=== PATIENT | male | born 1955 | race Caucasian/White ===

== ENCOUNTER 2019-10-27 19:10 | Emergency (ER) | payer BC ==
[2019-10-27] MEDS: Ketorolac 60 MG/2 ML SDV IM ONE (19:32)
[2019-10-27] MEDS: Cyclobenzaprine 10 MG Tab PO ONE (19:32)
--- NOTE | 2019-10-27 20:06 | EDM.PDOC ---
ED HPI GENERAL MEDICAL PROBLEM - General Chief Complaint: Back Pain or Injury Stated Complaint: BACK PAIN Time Seen by Provider: 10/27/19 19:25 Source of Information: Reports: Patient History Limitations: Reports: No Limitations - History of Present Illness INITIAL COMMENTS - FREE TEXT/NARRATIVE: Patient presented to the ED because of upper back pain. He woke up 2 days ago with pain, 6/10, and took OTC pain meds without relief. There is no recent trauma or injury. mid back Pain Score (Numeric/FACES): 6 - Related Data Allergies Allergy/AdvReac Type Severity Reaction Status Date / Time No Known Allergies Allergy Verified 10/27/19 19:21 Home Meds: Home Meds Citalopram Hydrobromide [Celexa] 20 mg PO DAILY 10/27/19 [History] Cyclobenzaprine [Flexeril] 10 mg PO TID PRN #15 tab 10/27/19 [Rx] Ibuprofen 800 mg PO Q8H PRN #30 tablet 10/27/19 [Rx] Past Medical History - Past Health History Medical/Surgical History: Denies Medical/Surgical History Respiratory History: Reports: Other (See Below) Other Respiratory History: smoker for 30 years 1 pack/day. Psychiatric History: Reports: Anxiety, Other (See Below) Other Psychiatric History: on celexa. Social & Family History - Family History Family Medical History: Noncontributory - Tobacco Use Smoking Status *Q: Current Every Day Smoker Years of Tobacco use: 30 Packs/Tins Daily: 1 - Caffeine Use Caffeine Use: Reports: None ED ROS GENERAL - Review of Systems Review Of Systems: See Below Constitutional: Reports: No Symptoms HEENT: Reports: No Symptoms Respiratory: Reports: No Symptoms Cardiovascular: Reports: No Symptoms Endocrine: Reports: No Symptoms GI/Abdominal: Reports: No Symptoms : Reports: Hematuria Musculoskeletal: Reports: No Symptoms Skin: Reports: No Symptoms Neurological: Reports: No Symptoms ED EXAM, UPPER BACK/NECK PAIN - Physical Exam Exam: See Below Exam Limited By: No Limitations General Appearance: Alert, No Apparent Distress Ears Exam: Normal External Exam, Normal Canal, Hearing Grossly Normal Nose Exam: Normal Inspection, Normal Mucousa Throat/Mouth Exam: Normal Inspection, Normal Lips, Normal Teeth Head Exam: Atraumatic, Normocephalic Neck Exam: Non-Tender, Full Range of Motion Cardiovascular/Respiratory: Regular Rate, Rhythm, No M/R/G, Normal Peripheral Pulses GI/Abdominal: Normal Bowel Sounds, Soft, Non-Tender (Male) Exam: No Hernia, Normal Inspection, Normal Prostate Back Exam: Vertebral Tenderness Extremities: Normal Inspection, Normal Range of Motion Course - Vital Signs Text/Narrative:: Toradol 60 mg IM x1 xray Thoracic- xray lumbar- Last Recorded V/S: Last Vital Signs Temp 36.3 C 10/27/19 19:20 Pulse 86 10/27/19 19:20 Resp 16 10/27/19 19:20 BP 142/79 H 10/27/19 19:20 Pulse Ox 100 10/27/19 19:20 - Orders/Labs/Meds Orders: Active Orders 24 hr Category Date Time Status Lumbar Spine 2 or 3V [CR] Stat Exams 10/27/19 19:24 Ordered Thoracic Spine 3V [CR] Stat Exams 10/27/19 19:24 Ordered Meds: Medications Discontinued Medications Generic Name Dose Route Start Last Admin Trade Name Freq PRN Reason Stop Dose Admin Cyclobenzaprine HCl 10 mg 10/27/19 19:24 10/27/19 19:32 Flexeril PO 10/27/19 19:25 10 mg ONETIME ONE Administration Ketorolac Tromethamine 60 mg 10/27/19 19:24 10/27/19 19:32 Toradol IM 10/27/19 19:25 60 mg ONETIME ONE Administration Departure - Departure Time of Disposition: 20:15 Disposition: Home, Self-Care 01 Condition: Good Clinical Impression: Back pain - Discharge Information Prescriptions: Cyclobenzaprine [Flexeril] 10 mg PO TID PRN #15 tab PRN Reason: Spasms Ibuprofen 800 mg PO Q8H PRN #30 tablet PRN Reason: Pain Referrals: Tyson Tellez MD [Primary Care Provider] - Additional Instructions: please read discharge instructions on back pain apply ice or heat whichever makes the pain feel better take flexeril 10 mg every 8 hours as needed for muscle spasm Ibuprofen 800 mg with tylenol 1000 mg every 8 hours as needed for pain follow up as needed Sepsis Event Note - Evaluation Sepsis Screening Result: No Definite Risk - Focused Exam Vital Signs: Vital Signs Temp Pulse Resp BP Pulse Ox 10/27/19 19:20 36.3 C 86 16 142/79 H 100 Date Exam was Performed: 10/27/19 Time Exam was Performed: 20:01 - My Orders Last 24 Hours: My Active Orders 10/27/19 19:24 Lumbar Spine 2 or 3V [CR] Stat Thoracic Spine 3V [CR] Stat - Assessment/Plan Last 24 Hours: My Active Orders 10/27/19 19:24 Lumbar Spine 2 or 3V [CR] Stat Thoracic Spine 3V [CR] Stat
[2019-10-27 20:45] VITALS: BP 140/78; PULSE 80
--- NOTE | 2019-10-28 10:11 | CR ---
INDICATION: Back pain. LUMBOSACRAL SPINE: Three views of the lumbosacral spine were obtained 10/27/19 - no comparisons. An appearance of diminished bone density raises question of osteomalacia or osteoporosis and should be correlated clinically. Endplate compressions are noted of mild degree throughout the lumbar spine and may be on a chronic basis. Overall, vertebral body disc heights were fairly well maintained otherwise. No significant hypertrophic degenerative changes were identified. There is a tilt of the spine to the right of moderate degree centered at L4-5. Incidentally noted were calcifications in the abdominal aorta and iliac arteries. Evidence of previous surgery is noted in the pelvis compatible with a sigmoid anastomosis. IMPRESSION: There is some tilt to the spine with an appearance of diminished bone density and mild endplate compressions of indeterminate age. Additionally , there is mild anterior vertebral body volume loss at L1 which was present on a previous CT of the chest dated 08/03/2018 and is therefore old. The upper lumbar levels to L3 also show endplate compressions at that previous examination. MTDD
--- NOTE | 2019-10-28 10:17 | CR ---
INDICATION: Back pain. THORACIC SPINE: Four views of the thoracic spine were obtained 10/27/19 in frontal and lateral projections and compared with CT scan of the chest dated . There is a compression fracture of moderate to severe degree at what appears to be T8 vertebral body. This was present to a minimal extent only on the previous study of 08/03/18 and therefore represents a significant increase in compression on the current study. No other new compressions were identified. There is some endplate loss of volume in general compatible with minimal compression fractures, some of which appear to be new or increased compared with the previous CT scan. Overall bone density is diminished in appearance suggesting osteomalacia or osteoporosis - correlate clinically. IMPRESSION: 1. Decreased bone density overall compatible with osteomalacia or osteoporosis - correlate clinically. 2. Compression fracture at T8 is noted - moderately severe and significantly increased compared with previous examination of 08/03/18. 3. Endplate compressions are also noted in general in the thoracic spine, either increased or new compared with the previous examination of 08/03/18. 4. Compression fracture at L1 vertebral body appears to be similar or perhaps very slightly increased in severity compared with the previous CT of 08/03/18. MTDD
== END 2019-10-27 20:25 | disposition home or self-care (01) ==
LOC: FB.ED 19:10
DX: M54.6 Pain in thoracic spine (principal); F41.9 Anxiety disorder, unspecified; F17.210 Nicotine dependence, cigarettes, uncomplicated; Z79.899 Other long term (current) drug therapy
CPT/HCPCS: 72072; 72100; 96372; 99283; A9270; J1885

== ENCOUNTER 2020-01-17 12:20 | Inpatient (IN) | payer BC ==
--- NOTE | 2020-01-17 13:35 | EDM.PDOC ---
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 [employer], however they have been unable to get in touch with him, his sister Winter from [place] in the [facility] came for a visit, they went to the [place] where he had a certified letter from [facility] saying that he would be terminated if he did not communicate with them and have a medical evaluation pt states he drinks only beer, told me that he drinks 6-10 beers/d lives with sig other and their 18 and 19 yo boys, one working on [employer], one works at [employer], sig other works at [employer] smokes 1 ppd, no THC, denies street drugs, states he has had no alc today never been in tx program for alc, does not think he has a drinking problem denies wt loss altho sister says he has lost a sig amount of wt sister reports a head injury from 2m ago, no head CT on record pt drinks beer in his garage, goes from the garage to a chair in the house and little else colonoscopy 04/18 with small polyps x 2 and a few sigmoid diveritculi CT 10-27-19 of l-spine with mild anterior vertebral body volume loss at L1 which was present on CT 08-03-18 and is old. L3 also shows endplate compressions on previous exam. CT 10-27-19 of t-spine with compression fx at T8 with moderately severe and sig inc'd c/w previous on 08-03-18. Endplate compressions also noted in t-spine that are inc'd or new c/w previous. - Related Data Allergies Allergy/AdvReac Type Severity Reaction Status Date / Time No Known Allergies Allergy Verified 01/17/20 12:59 Home Meds: Home Meds NK [No Known Home Meds] 01/17/20 [History] Social & Family History - Tobacco Use Smoking Status *Q: Current Every Day Smoker Years of Tobacco use: 40 Packs/Tins Daily: 1 - Caffeine Use Caffeine Use: Reports: None - Alcohol Use Days Per Week of Alcohol Use: 7 Number of Drinks Per Day: 10 Total Drinks Per Week: 70 Date of Last Drink: 01/16/20 Time of Last Drink: 22:00 - Recreational Drug Use Recreational Drug Use: No ED ROS GENERAL - Review of Systems Review Of Systems: See Below Constitutional: Reports: Weakness, Weight Loss, Other (sister reports he is frail and very weak) HEENT: Reports: No Symptoms Respiratory: Reports: No Symptoms Cardiovascular: Reports: No Symptoms Endocrine: Reports: No Symptoms GI/Abdominal: Reports: No Symptoms : Reports: No Symptoms Musculoskeletal: Reports: No Symptoms Skin: Reports: No Symptoms Neurological: Reports: Confusion Psychiatric: Reports: No Symptoms Hematologic/Lymphatic: Reports: No Symptoms Immunologic: Reports: No Symptoms ED EXAM, GENERAL - Physical Exam Exam: See Below Exam Limited By: No Limitations General Appearance: Alert, Thin, Other (slight tremor, emaciated ext x 4, good eye contact, conversant, pleasant) Eye Exam: Bilateral Eye: PERRL, Other (several drops of white proteinaceous matter at L medial canthus) Ears: Normal External Exam, Hearing Grossly Normal Nose: Normal Inspection, Normal Mucosa, No Blood Throat/Mouth: Normal Inspection, Normal Lips, No Airway Compromise Head: Atraumatic, Normocephalic Neck: Normal Inspection, Supple, Non-Tender, Full Range of Motion. No: Lymphadenopathy (R), Lymphadenopathy (L) Respiratory/Chest: No Respiratory Distress, Lungs Clear, Normal Breath Sounds, No Accessory Muscle Use, Chest Non-Tender Cardiovascular: Regular Rate, Rhythm, No Edema, No Gallop, No Murmur GI/Abdominal: Normal Bowel Sounds, Soft, Non-Tender, No Distention Back Exam: Normal Inspection Extremities: Non-Tender, No Pedal Edema Neurological: Alert, CN II-XII Intact, No Motor/Sensory Deficits Skin Exam: Warm, Dry, Intact Lymphatic: No Adenopathy Course - Vital Signs Last Recorded V/S: Last Vital Signs Temp 37.1 C 01/17/20 19:52 Pulse 104 H 01/17/20 19:52 Resp 16 01/17/20 19:52 BP 128/84 01/17/20 19:52 Pulse Ox 92 L 01/17/20 19:52 - Orders/Labs/Meds Orders: Active Orders 24 hr Category Date Time Status Admission Status [Patient Status] [ADT] Routine ADT 01/17/20 19:42 Active EKG Documentation Completion [RC] ASDIRECTED Care 01/17/20 13:36 Active EKG 12 Lead [EK] Routine Ther 01/17/20 13:35 Ordered Medication Orders Acetaminophen (Tylenol) 650 mg PO Q4H PRN PRN Reason: Pain (Mild 1-3)/fever Lorazepam (Ativan) 1 mg IVPUSH Q2H PRN PRN Reason: Other Nicotine (Habitrol) 21 mg TRDERM DAILY JOSE ANTONIO Ondansetron HCl (Zofran) 4 mg IV Q4H PRN PRN Reason: Nausea/Vomiting Sodium Chloride (Saline Flush) 10 ml FLUSH ASDIRECTED PRN PRN Reason: Keep Vein Open Labs: Laboratory Tests 01/17/20 01/17/20 01/17/20 Range/Units 13:43 13:43 13:50 WBC 3.5 L (4.5-12.0) X10-3/uL RBC 4.18 L (4.30-5.75) x10(6)uL Hgb 13.5 (13.5-17.8) g/dL Hct 41.8 (30.0-51.3) % MCV 99.9 H (80-96) fL MCH 32.3 (27.7-33.6) pg MCHC 32.4 (32.2-35.4) g/dL RDW 15.1 (11.5-15.5) % Plt Count 227 (125-369) X10(3)uL MPV 9.0 (7.4-10.4) fL Neut % (Auto) 65.0 (46-82) % Lymph % (Auto) 18.9 (13-37) % [place] % (Auto) 12.1 H (4-12) % Eos % (Auto) 3 (1.0-5.0) % Baso % (Auto) 1 (0-2) % Neut # (Auto) 2.3 (1.6-8.3) # Lymph # (Auto) 0.7 (0.6-5.0) # [place] # (Auto) 0.4 (0.0-1.3) # Eos # (Auto) 0.1 (0.0-0.8) # Baso # (Auto) 0.0 (0.0-0.2) # PT (9.0-11.1) sec INR (1.00-1.24) Sodium (135-145) mmol/L Potassium (3.5-5.3) mmol/L Chloride (100-110) mmol/L Carbon Dioxide (21-32) mmol/L BUN (7-18) mg/dL Creatinine (0.70-1.30) mg/dL Est Cr Clr Drug Dosing mL/min Estimated GFR (MDRD) (>60) BUN/Creatinine Ratio (9-20) Glucose (80-116) mg/dL Calcium (8.6-10.2) mg/dL Magnesium (1.8-2.5) mg/dL Total Bilirubin (0.1-1.3) mg/dL AST (5-25) IU/L ALT (12-36) U/L Alkaline Phosphatase (56-112) IU/L C-Reactive Protein (0.5-0.9) mg/dL Total Protein (6.0-8.0) g/dL Albumin (3.2-4.6) g/dL Globulin g/dL Albumin/Globulin Ratio TSH, Ultra Sensitive (0.36-3.74) IU/mL Urine Color Yellow (YELLOW) Urine Appearance Slightly cloudy (CLEAR) Urine pH 6.0 (5.0-6.5) Ur Specific Phil Campbell 1.015 (1.010-1.025) Urine Protein Negative (NEGATIVE) mg/dL Urine Glucose (UA) Normal (NORMAL) mg/dL Urine Ketones Negative (NEGATIVE) mg/dL Urine Occult Blood Negative (NEGATIVE) Urine Nitrite Negative (NEGATIVE) Urine Bilirubin Negative (NEGATIVE) Urine Urobilinogen Normal (NEGATIVE) mg/dL Ur Leukocyte Esterase Small H (NEGATIVE) Urine WBC 0-5 (0-5) Ur Squamous Epith Cells Few H (NS,R,O) Urine Bacteria Few H (NS) Urine Opiates Screen Negative (NEGATIVE) Ur Oxycodone Screen Negative (NEGATIVE) Ur Propoxyphene Screen Negative (NEGATIVE) Ur Barbituates Screen Negative (NEGATIVE) Ur Tricyclics Screen Negative (NEGATIVE) Ur Phencyclidine Scrn Negative (NEGATIVE) Ur Amphetamine Screen Negative (NEGATIVE) Urine MDMA Screen Negative (NEGATIVE) U Benzodiazepines Scrn Negative (NEGATIVE) U Cocaine Metab Screen Negative (NEGATIVE) U Marijuana (THC) Screen Negative (NEGATIVE) Ethyl Alcohol (<0.03) % 01/17/20 01/17/20 01/17/20 Range/Units 13:50 13:50 13:50 WBC (4.5-12.0) X10-3/uL RBC (4.30-5.75) x10(6)uL Hgb (13.5-17.8) g/dL Hct (30.0-51.3) % MCV (80-96) fL MCH (27.7-33.6) pg MCHC (32.2-35.4) g/dL RDW (11.5-15.5) % Plt Count (125-369) X10(3)uL MPV (7.4-10.4) fL Neut % (Auto) (46-82) % Lymph % (Auto) (13-37) % [place] % (Auto) (4-12) % Eos % (Auto) (1.0-5.0) % Baso % (Auto) (0-2) % Neut # (Auto) (1.6-8.3) # Lymph # (Auto) (0.6-5.0) # [place] # (Auto) (0.0-1.3) # Eos # (Auto) (0.0-0.8) # Baso # (Auto) (0.0-0.2) # PT 10.4 (9.0-11.1) sec INR 0.96 L (1.00-1.24) Sodium 143 (135-145) mmol/L Potassium 3.7 (3.5-5.3) mmol/L Chloride 106 (100-110) mmol/L Carbon Dioxide 28 (21-32) mmol/L BUN 3 L (7-18) mg/dL Creatinine 0.6 L (0.70-1.30) mg/dL Est Cr Clr Drug Dosing 87.78 mL/min Estimated GFR (MDRD) > 60 (>60) BUN/Creatinine Ratio 5.0 L (9-20) Glucose 90 (80-116) mg/dL Calcium 8.2 L (8.6-10.2) mg/dL Magnesium (1.8-2.5) mg/dL Total Bilirubin 0.5 (0.1-1.3) mg/dL AST 54 H (5-25) IU/L ALT 53 H (12-36) U/L Alkaline Phosphatase 129 H (56-112) IU/L C-Reactive Protein 0.4 L (0.5-0.9) mg/dL Total Protein 6.6 (6.0-8.0) g/dL Albumin 2.9 L (3.2-4.6) g/dL Globulin 3.7 g/dL Albumin/Globulin Ratio 0.8 TSH, Ultra Sensitive 1.98 (0.36-3.74) IU/mL Urine Color (YELLOW) Urine Appearance (CLEAR) Urine pH (5.0-6.5) Ur Specific Phil Campbell (1.010-1.025) Urine Protein (NEGATIVE) mg/dL Urine Glucose (UA) (NORMAL) mg/dL Urine Ketones (NEGATIVE) mg/dL Urine Occult Blood (NEGATIVE) Urine Nitrite (NEGATIVE) Urine Bilirubin (NEGATIVE) Urine Urobilinogen (NEGATIVE) mg/dL Ur Leukocyte Esterase (NEGATIVE) Urine WBC (0-5) Ur Squamous Epith Cells (NS,R,O) Urine Bacteria (NS) Urine Opiates Screen (NEGATIVE) Ur Oxycodone Screen (NEGATIVE) Ur Propoxyphene Screen (NEGATIVE) Ur Barbituates Screen (NEGATIVE) Ur Tricyclics Screen (NEGATIVE) Ur Phencyclidine Scrn (NEGATIVE) Ur Amphetamine Screen (NEGATIVE) Urine MDMA Screen (NEGATIVE) U Benzodiazepines Scrn (NEGATIVE) U Cocaine Metab Screen (NEGATIVE) U Marijuana (THC) Screen (NEGATIVE) Ethyl Alcohol 0.18 H* (<0.03) % // Range/Units 13:50 WBC (4.5-12.0) X10-3/uL RBC (4.30-5.75) x10(6)uL Hgb (13.5-17.8) g/dL Hct (30.0-51.3) % MCV (80-96) fL MCH (27.7-33.6) pg MCHC (32.2-35.4) g/dL RDW (11.5-15.5) % Plt Count (125-369) X10(3)uL MPV (7.4-10.4) fL Neut % (Auto) (46-82) % Lymph % (Auto) (13-37) % [place] % (Auto) (4-12) % Eos % (Auto) (1.0-5.0) % Baso % (Auto) (0-2) % Neut # (Auto) (1.6-8.3) # Lymph # (Auto) (0.6-5.0) # [place] # (Auto) (0.0-1.3) # Eos # (Auto) (0.0-0.8) # Baso # (Auto) (0.0-0.2) # PT (9.0-11.1) sec INR (1.00-1.24) Sodium (135-145) mmol/L Potassium (3.5-5.3) mmol/L Chloride (100-110) mmol/L Carbon Dioxide (21-32) mmol/L BUN (7-18) mg/dL Creatinine (0.70-1.30) mg/dL Est Cr Clr Drug Dosing mL/min Estimated GFR (MDRD) (>60) BUN/Creatinine Ratio (9-20) Glucose (80-116) mg/dL Calcium (8.6-10.2) mg/dL Magnesium 2.1 (1.8-2.5) mg/dL Total Bilirubin (0.1-1.3) mg/dL AST (5-25) IU/L ALT (12-36) U/L Alkaline Phosphatase (56-112) IU/L C-Reactive Protein (0.5-0.9) mg/dL Total Protein (6.0-8.0) g/dL Albumin (3.2-4.6) g/dL Globulin g/dL Albumin/Globulin Ratio TSH, Ultra Sensitive (0.36-3.74) IU/mL Urine Color (YELLOW) Urine Appearance (CLEAR) Urine pH (5.0-6.5) Ur Specific Phil Campbell (1.010-1.025) Urine Protein (NEGATIVE) mg/dL Urine Glucose (UA) (NORMAL) mg/dL Urine Ketones (NEGATIVE) mg/dL Urine Occult Blood (NEGATIVE) Urine Nitrite (NEGATIVE) Urine Bilirubin (NEGATIVE) Urine Urobilinogen (NEGATIVE) mg/dL Ur Leukocyte Esterase (NEGATIVE) Urine WBC (0-5) Ur Squamous Epith Cells (NS,R,O) Urine Bacteria (NS) Urine Opiates Screen (NEGATIVE) Ur Oxycodone Screen (NEGATIVE) Ur Propoxyphene Screen (NEGATIVE) Ur Barbituates Screen (NEGATIVE) Ur Tricyclics Screen (NEGATIVE) Ur Phencyclidine Scrn (NEGATIVE) Ur Amphetamine Screen (NEGATIVE) Urine MDMA Screen (NEGATIVE) U Benzodiazepines Scrn (NEGATIVE) U Cocaine Metab Screen (NEGATIVE) U Marijuana (THC) Screen (NEGATIVE) Ethyl Alcohol (<0.03) % Meds: Medications Generic Name Dose Route Start Last Admin Trade Name Freq PRN Reason Stop Dose Admin Acetaminophen 650 mg 01/17/20 19:52 Tylenol PO Q4H PRN Pain (Mild 1-3)/fever Lorazepam 1 mg 01/17/20 19:55 Ativan IVPUSH Q2H PRN Other Nicotine 21 mg 01/17/20 21:45 Habitrol TRDERM DAILY JOSE ANTONIO Ondansetron HCl 4 mg 01/17/20 19:52 Zofran IV Q4H PRN Nausea/Vomiting Sodium Chloride 10 ml 01/17/20 21:32 Saline Flush FLUSH ASDIRECTED PRN Keep Vein Open Discontinued Medications Generic Name Dose Route Start Last Admin Trade Name Freq PRN Reason Stop Dose Admin Lorazepam 2 mg 01/17/20 18:02 01/17/20 18:09 Ativan PO 01/17/20 18:03 2 mg ONETIME ONE Administration - Re-Assessments/Exams Free Text/Narrative Re-Assessment/Exam: 01/17/20 14:[address] Chance, radiology, head CT with encephalomalacia at R frontal c/w old contusion vs CVA, cerebral atrophy noted as well 01/17/20 16:20 Rosa, adoption social worker here, recommended the [facility] at [place] for inpatient tx. Pt's sister Winter, phone [phone], said that she could drive pt to [place]. Hospitalist and then ED physician contacted at [facility] in [place], who then referred me to their [facility], ext [phone]. The [facility] said that patients need to go through 3 days of alcohol detox, which is not done at [place]. They typically use [facility]. [facility] detox unit contacted at [phone], Breann requested that we fax over the pt's info and that he could be considered for admission. This info is being sent. vss here, is more shaky with his hands, no meds given here at this juncture will tentatively plan to have sister drive pt to [facility] alc detox unit with later transfer to [facility] inpt tx unit pt will be terminated in one week on 01/23 from his job if he does not enter treatment 01/17/20 17:44 [facility] detox reviewed documentation and declined to take pt as he lives in [place] 01/17/20 20:00 Neil De Guzman reviewed documentation and declined as pt is "too complicated" [facility] declined as they have no contract with [facility] for alc detox pts МАРИНА Hodge called [facility], however there is only outpt alc tx, no inpt d/w DON who agreed to admit pt here in absence of other options sister Winter is planning on staying overnight in [facility] 22:05 pt slept soundly after Ativan 2 mg PO x 1, was cooperative and pleasant and without shakes on floor, declined supper, declined snack on floor altho RN was going to encourage to eat something Departure - Departure Time of Disposition: 20:30 Disposition: Admitted As Inpatient 66 Clinical Impression: Alcohol abuse, Alcohol intoxication, Malnutrition, Hypoalbuminemia, Cognitive impairment, Chronic diarrhea, Elevated liver function tests, Weight loss, Encephalomalacia on imaging study, Leukopenia, Macrocytosis, Elevated alkaline phosphatase level - Discharge Information *PRESCRIPTION DRUG MONITORING PROGRAM REVIEWED*: Not Applicable *COPY OF PRESCRIPTION DRUG MONITORING REPORT IN PATIENT MENG: Not Applicable Sepsis Event Note (ED) - Evaluation Sepsis Screening Result: No Definite Risk - Focused Exam Vital Signs: Vital Signs Temp Pulse Resp BP Pulse Ox 01/17/20 18:05 36.8 C 105 H 18 127/82 97 01/17/20 15:45 36.7 C 91 16 130/76 96 01/17/20 12:23 36.8 C 91 16 123/84 95 - My Orders Last 24 Hours: My Active Orders 01/17/20 13:35 EKG 12 Lead [EK] Routine 01/17/20 13:36 EKG Documentation Completion [RC] ASDIRECTED 01/17/20 19:42 Admission Status [Patient Status] [ADT] Routine - Assessment/Plan Last 24 Hours: My Active Orders 01/17/20 13:35 EKG 12 Lead [EK] Routine 01/17/20 13:36 EKG Documentation Completion [RC] ASDIRECTED 01/17/20 19:42 Admission Status [Patient Status] [ADT] Routine
--- NOTE | 2020-01-17 14:56 | CR ---
INDICATION: Weakness, weight loss. CHEST TWO VIEWS: PA and lateral views of the chest were obtained 01/17/[address] scan of the chest dated 08/03/18. New finding of osteoporotic compression fractures is noted at T7 - severe, mostly anterior but also endplates - greater than 50%, and mild - T8 superior endplate and slightly anteriorly. Otherwise, vertebral body heights were maintained. There is some accentuated dorsal kyphosis at the T7-8 level due to the compressions. Findings compatible with severe COPD are again noted. Pulmonary markings appear similar to the previous CT without a definite active infiltrate or effusion identified. The heart is normal in size and shape. The arch of the aorta is slightly prominent with calcification. IMPRESSION: 1. Fractures of T7 and T8 vertebral bodies are new compared with previous CT scan from 08/03/18, but were present on thoracic spine of 10/27/2019.. 2. Severe COPD. 3. ASD aorta. Report was called to Dr. Frederick at 1425 hours. [facility]
--- NOTE | 2020-01-17 15:10 | CT ---
INDICATION: Head injury 2 months ago, increased confusion. CT OF THE HEAD WITHOUT CONTRAST: Spiral 3.75 mm axial sections were obtained through the brain without contrast with sagittal and coronal reconstructions 01/17/20 - no comparisons. Total exam DLP was 1296.53 mGy-cm. The left maxillary antrum is almost completely opacified which may be on the basis of sinusitis and should be correlated clinically, markedly thickened all is noted at that sinus. The paranasal sinuses were otherwise fairly well aerated except for few left- sided ethmoidal air cells which showed some thickening of linings raising question of additional area of sinusitis. The mastoid air cells appeared to be well aerated. No cranial abnormality was seen. The orbits appear to be intact. Calcifications are noted in the internal carotid arteries. The ventricles are prominent compatible with a significant degree of central atrophy. Some very minimal patchy decreased density in the white suggests a mild degree of microvascular disease. In the right frontal lobe, there is evidence of decreased density in the white matter extending into the tompkins matter extensively compatible with an acute right frontal cerebral infarct An area of encephalomalacia from previous infarct is felt to be less likely, but would also be a consideration which could be further evaluated by MRI, as felt to be clinically necessary. No evidence of a bleeding site or hematoma was seen. IMPRESSION: 1. No definite acute process, but difficult to exclude an acute thrombotic CVA in the right frontal area versus old area of brain injury such as encephalomalacia from previous thrombotic CVA or even injury. Possible brain contusion would be a consideration also. 2. Cerebrovascular disease with central atrophy and minimal microvascular disease type changes in the white matter as well as some calcifications in the internal carotid arteries. 3. Sinusitis, left maxillary antrum. Report was called to Dr. Frederick at 1425 hours. [facility]
[2020-01-17] MEDS ORDERED: LORazepam 1 MG Tab PO ONE (18:02)
[2020-01-17] MEDS ORDERED: Ondansetron 4 MG/2 ML SDV IV PRN (19:52)
[2020-01-17] MEDS ORDERED: Sodium Chloride 0.9% 10 ML Syringe FLUSH PRN (21:32)
[2020-01-17] MEDS ORDERED: Nicotine 21 MG/24 Hr Patch TRDERM SCH (21:45)
[2020-01-17] MEDS ORDERED: Dextrose 5%-0.225% NaCl w/KCl 1,000 ML IV SCH (22:15)
[2020-01-17] MEDS ORDERED: D5 1/2 NS w/ 20 mEq/L KCl 1,000 ML IV SCH (23:00)
[2020-01-18] MEDS: LORazepam 2 MG/ML SDV IVPUSH PRN ×6 (07:39→22:50)
--- NOTE | 2020-01-18 08:41 | PCM.HP.2 ---
H&P History of Present Illness - General Date of Service: 01/18/20 Admit Problem/Dx: Admission Diagnosis/Problem Admission Diagnosis/Problem Alcohol dependence Source of Information: Patient, Family History Limitations: Reports: No Limitations - History of Present Illness Initial Comments - Free Text/Narative: Jorge is a 64-year-old male known to me, presented to ED because of alcohol intoxication. He has a history of Eczema, tobacco abuse, and depression that are previously stable. Yesterday his sister brought him in because his work were not able to reach him. Unclear when his last drink was. He did endorse drinking 6-7 beers per day for several years. Several calls were made in the emergency room to try getting him a place for inpatient treatment, but it's been not been possible - Related Data Allergies/Adverse Reactions: Allergies Allergy/AdvReac Type Severity Reaction Status Date / Time No Known Allergies Allergy Verified 01/18/20 07:10 Home Medications: Home Meds NK [No Known Home Meds] 01/17/20 [History] Past Medical History - Past Health History Medical/Surgical History: Denies Medical/Surgical History HEENT History: Reports: Impaired Vision Respiratory History: Reports: Other (See Below) Other Respiratory History: Benign mass located on lung. Gastrointestinal History: Reports: Other (See Below) Other Gastrointestinal History: Ruptured bowel. Musculoskeletal History: Reports: Other (See Below) Other Musculoskeletal History: Broken rib and wrist. Psychiatric History: Reports: Depression Other Psychiatric History: on celexa. - Infectious Disease History Infectious Disease History: Reports: Chicken Pox - Past Surgical History HEENT Surgical History: Reports: None GI Surgical History: Reports: Appendectomy Social & Family History - Family History Family Medical History: Noncontributory - Tobacco Use Smoking Status *Q: Current Every Day Smoker Years of Tobacco use: 40 Packs/Tins Daily: 1 Used Tobacco, but Quit: No - Caffeine Use Caffeine Use: Reports: None - Alcohol Use Days Per Week of Alcohol Use: 7 Number of Drinks Per Day: 10 Total Drinks Per Week: 70 Date of Last Drink: 01/16/20 Time of Last Drink: 22:00 - Recreational Drug Use Recreational Drug Use: No H&P Review of Systems - Review of Systems: Review Of Systems: Comprehensive ROS is negative, except as noted in HPI. Exam - Exam Exam: See Below - Vital Signs Vital Signs: Last Vital Signs Temp 98.2 F 07/15/20 08:00 Pulse 92 01/18/20 08:00 Resp 20 01/18/20 08:00 BP 138/80 01/18/20 08:00 Pulse Ox 95 01/18/20 08:00 Weight: 46.805 kg - Exam Quality Assessment: Other (Cachectic) General: Alert, Oriented, Other (tremulous) HEENT: PERRLA, Conjunctiva Clear Neck: Supple Lungs: Clear to Auscultation Cardiovascular: Regular Rate GI/Abdominal Exam: Normal Bowel Sounds (Male) Exam: Deferred Rectal (Males) Exam: Deferred Back Exam: Normal Inspection Extremities: Normal Inspection Neurological: Cranial Nerves Intact, Strength Equal Bilateral Neuro Extensive - Mental Status: Oriented x3, Memory Intact Neuro Extensive - Motor, Sensory, Reflexes: CN II-XII Intact Psychiatric: Alert, Withdrawal Symptoms - Patient Data Lab Results Last 24 hrs: Laboratory Results - last 24 hr 01/17/20 01/17/20 01/17/20 Range/Units 13:43 13:43 13:50 WBC 3.5 L (4.5-12.0) X10-3/uL RBC 4.18 L (4.30-5.75) x10(6)uL Hgb 13.5 (13.5-17.8) g/dL Hct 41.8 (30.0-51.3) % MCV 99.9 H (80-96) fL MCH 32.3 (27.7-33.6) pg MCHC 32.4 (32.2-35.4) g/dL RDW 15.1 (11.5-15.5) % Plt Count 227 (125-369) X10(3)uL MPV 9.0 (7.4-10.4) fL Neut % (Auto) 65.0 (46-82) % Lymph % (Auto) 18.9 (13-37) % Charles % (Auto) 12.1 H (4-12) % Eos % (Auto) 3 (1.0-5.0) % Baso % (Auto) 1 (0-2) % Neut # (Auto) 2.3 (1.6-8.3) # Lymph # (Auto) 0.7 (0.6-5.0) # Charles # (Auto) 0.4 (0.0-1.3) # Eos # (Auto) 0.1 (0.0-0.8) # Baso # (Auto) 0.0 (0.0-0.2) # PT (9.0-11.1) sec INR (1.00-1.24) Sodium (135-145) mmol/L Potassium (3.5-5.3) mmol/L Chloride (100-110) mmol/L Carbon Dioxide (21-32) mmol/L BUN (7-18) mg/dL Creatinine (0.70-1.30) mg/dL Est Cr Clr Drug Dosing mL/min Estimated GFR (MDRD) (>60) BUN/Creatinine Ratio (9-20) Glucose (80-116) mg/dL Calcium (8.6-10.2) mg/dL Magnesium (1.8-2.5) mg/dL Total Bilirubin (0.1-1.3) mg/dL AST (5-25) IU/L ALT (12-36) U/L Alkaline Phosphatase (56-112) IU/L C-Reactive Protein (0.5-0.9) mg/dL Total Protein (6.0-8.0) g/dL Albumin (3.2-4.6) g/dL Globulin g/dL Albumin/Globulin Ratio TSH, Ultra Sensitive (0.36-3.74) IU/mL Urine Color Yellow (YELLOW) Urine Appearance Slightly cloudy (CLEAR) Urine pH 6.0 (5.0-6.5) Ur Specific Sulphur 1.015 (1.010-1.025) Urine Protein Negative (NEGATIVE) mg/dL Urine Glucose (UA) Normal (NORMAL) mg/dL Urine Ketones Negative (NEGATIVE) mg/dL Urine Occult Blood Negative (NEGATIVE) Urine Nitrite Negative (NEGATIVE) Urine Bilirubin Negative (NEGATIVE) Urine Urobilinogen Normal (NEGATIVE) mg/dL Ur Leukocyte Esterase Small H (NEGATIVE) Urine WBC 0-5 (0-5) Ur Squamous Epith Cells Few H (NS,R,O) Urine Bacteria Few H (NS) Urine Opiates Screen Negative (NEGATIVE) Ur Oxycodone Screen Negative (NEGATIVE) Ur Propoxyphene Screen Negative (NEGATIVE) Ur Barbituates Screen Negative (NEGATIVE) Ur Tricyclics Screen Negative (NEGATIVE) Ur Phencyclidine Scrn Negative (NEGATIVE) Ur Amphetamine Screen Negative (NEGATIVE) Urine MDMA Screen Negative (NEGATIVE) U Benzodiazepines Scrn Negative (NEGATIVE) U Cocaine Metab Screen Negative (NEGATIVE) U Marijuana (THC) Screen Negative (NEGATIVE) Ethyl Alcohol (<0.03) % 01/17/20 01/17/20 01/17/20 Range/Units 13:50 13:50 13:50 WBC (4.5-12.0) X10-3/uL RBC (4.30-5.75) x10(6)uL Hgb (13.5-17.8) g/dL Hct (30.0-51.3) % MCV (80-96) fL MCH (27.7-33.6) pg MCHC (32.2-35.4) g/dL RDW (11.5-15.5) % Plt Count (125-369) X10(3)uL MPV (7.4-10.4) fL Neut % (Auto) (46-82) % Lymph % (Auto) (13-37) % Charles % (Auto) (4-12) % Eos % (Auto) (1.0-5.0) % Baso % (Auto) (0-2) % Neut # (Auto) (1.6-8.3) # Lymph # (Auto) (0.6-5.0) # Charles # (Auto) (0.0-1.3) # Eos # (Auto) (0.0-0.8) # Baso # (Auto) (0.0-0.2) # PT 10.4 (9.0-11.1) sec INR 0.96 L (1.00-1.24) Sodium 143 (135-145) mmol/L Potassium 3.7 (3.5-5.3) mmol/L Chloride 106 (100-110) mmol/L Carbon Dioxide 28 (21-32) mmol/L BUN 3 L (7-18) mg/dL Creatinine 0.6 L (0.70-1.30) mg/dL Est Cr Clr Drug Dosing 87.78 mL/min Estimated GFR (MDRD) > 60 (>60) BUN/Creatinine Ratio 5.0 L (9-20) Glucose 90 (80-116) mg/dL Calcium 8.2 L (8.6-10.2) mg/dL Magnesium (1.8-2.5) mg/dL Total Bilirubin 0.5 (0.1-1.3) mg/dL AST 54 H (5-25) IU/L ALT 53 H (12-36) U/L Alkaline Phosphatase 129 H (56-112) IU/L C-Reactive Protein 0.4 L (0.5-0.9) mg/dL Total Protein 6.6 (6.0-8.0) g/dL Albumin 2.9 L (3.2-4.6) g/dL Globulin 3.7 g/dL Albumin/Globulin Ratio 0.8 TSH, Ultra Sensitive 1.98 (0.36-3.74) IU/mL Urine Color (YELLOW) Urine Appearance (CLEAR) Urine pH (5.0-6.5) Ur Specific Sulphur (1.010-1.025) Urine Protein (NEGATIVE) mg/dL Urine Glucose (UA) (NORMAL) mg/dL Urine Ketones (NEGATIVE) mg/dL Urine Occult Blood (NEGATIVE) Urine Nitrite (NEGATIVE) Urine Bilirubin (NEGATIVE) Urine Urobilinogen (NEGATIVE) mg/dL Ur Leukocyte Esterase (NEGATIVE) Urine WBC (0-5) Ur Squamous Epith Cells (NS,R,O) Urine Bacteria (NS) Urine Opiates Screen (NEGATIVE) Ur Oxycodone Screen (NEGATIVE) Ur Propoxyphene Screen (NEGATIVE) Ur Barbituates Screen (NEGATIVE) Ur Tricyclics Screen (NEGATIVE) Ur Phencyclidine Scrn (NEGATIVE) Ur Amphetamine Screen (NEGATIVE) Urine MDMA Screen (NEGATIVE) U Benzodiazepines Scrn (NEGATIVE) U Cocaine Metab Screen (NEGATIVE) U Marijuana (THC) Screen (NEGATIVE) Ethyl Alcohol 0.18 H* (<0.03) % 01/17/20 Range/Units 13:50 WBC (4.5-12.0) X10-3/uL RBC (4.30-5.75) x10(6)uL Hgb (13.5-17.8) g/dL Hct (30.0-51.3) % MCV (80-96) fL MCH (27.7-33.6) pg MCHC (32.2-35.4) g/dL RDW (11.5-15.5) % Plt Count (125-369) X10(3)uL MPV (7.4-10.4) fL Neut % (Auto) (46-82) % Lymph % (Auto) (13-37) % Charles % (Auto) (4-12) % Eos % (Auto) (1.0-5.0) % Baso % (Auto) (0-2) % Neut # (Auto) (1.6-8.3) # Lymph # (Auto) (0.6-5.0) # Charles # (Auto) (0.0-1.3) # Eos # (Auto) (0.0-0.8) # Baso # (Auto) (0.0-0.2) # PT (9.0-11.1) sec INR (1.00-1.24) Sodium (135-145) mmol/L Potassium (3.5-5.3) mmol/L Chloride (100-110) mmol/L Carbon Dioxide (21-32) mmol/L BUN (7-18) mg/dL Creatinine (0.70-1.30) mg/dL Est Cr Clr Drug Dosing mL/min Estimated GFR (MDRD) (>60) BUN/Creatinine Ratio (9-20) Glucose (80-116) mg/dL Calcium (8.6-10.2) mg/dL Magnesium 2.1 (1.8-2.5) mg/dL Total Bilirubin (0.1-1.3) mg/dL AST (5-25) IU/L ALT (12-36) U/L Alkaline Phosphatase (56-112) IU/L C-Reactive Protein (0.5-0.9) mg/dL Total Protein (6.0-8.0) g/dL Albumin (3.2-4.6) g/dL Globulin g/dL Albumin/Globulin Ratio TSH, Ultra Sensitive (0.36-3.74) IU/mL Urine Color (YELLOW) Urine Appearance (CLEAR) Urine pH (5.0-6.5) Ur Specific Sulphur (1.010-1.025) Urine Protein (NEGATIVE) mg/dL Urine Glucose (UA) (NORMAL) mg/dL Urine Ketones (NEGATIVE) mg/dL Urine Occult Blood (NEGATIVE) Urine Nitrite (NEGATIVE) Urine Bilirubin (NEGATIVE) Urine Urobilinogen (NEGATIVE) mg/dL Ur Leukocyte Esterase (NEGATIVE) Urine WBC (0-5) Ur Squamous Epith Cells (NS,R,O) Urine Bacteria (NS) Urine Opiates Screen (NEGATIVE) Ur Oxycodone Screen (NEGATIVE) Ur Propoxyphene Screen (NEGATIVE) Ur Barbituates Screen (NEGATIVE) Ur Tricyclics Screen (NEGATIVE) Ur Phencyclidine Scrn (NEGATIVE) Ur Amphetamine Screen (NEGATIVE) Urine MDMA Screen (NEGATIVE) U Benzodiazepines Scrn (NEGATIVE) U Cocaine Metab Screen (NEGATIVE) U Marijuana (THC) Screen (NEGATIVE) Ethyl Alcohol (<0.03) % Result Diagrams: 01/17/20 13:50 01/17/20 13:50 Sepsis Event Note - Evaluation Sepsis Screening Result: No Definite Risk - Focused Exam Vital Signs: Vital Signs Temp Temp Pulse Resp BP BP Pulse Ox 01/18/20 08:00 98.2 F 92 20 138/80 95 01/18/20 06:00 97.6 F 74 16 134/81 97 01/17/20 23:52 98.2 F 92 18 118/78 94 L Date Exam was Performed: 01/18/20 Time Exam was Performed: 08:31 - Problem List (1) Alcohol abuse SNOMED Code(s): 68341230 ICD Code: F10.10 - ALCOHOL ABUSE, UNCOMPLICATED Status: Acute Current Visit: Yes (2) MDD (major depressive disorder) SNOMED Code(s): 763813775 ICD Code: F32.9 - MAJOR DEPRESSIVE DISORDER, SINGLE EPISODE, UNSPECIFIED Status: Acute Current Visit: Yes Qualifiers: Major depression recurrence: recurrent Active/Remission status: currently active Major depression episode severity: moderate Qualified Code(s): F33.1 - Major depressive disorder, recurrent, moderate (3) Thoracic spine fracture SNOMED Code(s): 500278563 ICD Code: S22.009A - UNSP FRACTURE OF UNSP THORACIC VERTEBRA, INIT FOR CLOS FX Status: Chronic Current Visit: Yes Qualifiers: Encounter type: subsequent encounter Fracture healing: with routine healing (4) Alcohol intoxication SNOMED Code(s): 67013125 ICD Code: F10.929 - ALCOHOL USE, UNSPECIFIED WITH INTOXICATION, UNSPECIFIED Status: Acute Current Visit: Yes (5) Malnutrition SNOMED Code(s): 27559778 ICD Code: E46 - UNSPECIFIED PROTEIN-CALORIE MALNUTRITION Status: Acute Current Visit: Yes Qualifiers: Malnutrition type: protein-calorie malnutrition Problem List Initiated/Reviewed/Updated: Yes Orders Last 24hrs: Active Orders 24 hr Category Date Time Status Admission Status [Patient Status] [ADT] Routine ADT 01/17/20 19:42 Active Oxygen Therapy [RC] PRN Care 01/17/20 19:52 Active Up ad Samira [RC] ASDIRECTED Care 01/17/20 19:52 Active VTE/DVT Education [RC] Per Unit Routine Care 01/17/20 19:52 Active Vital Signs [RC] Q4H Care 01/17/20 19:52 Active Consult to Case Management/Registration Rep [CONS] Cons 01/17/20 19:52 Active Routine Consult to Personal Assistant [CONS] Routine Cons 01/17/20 19:52 Active Consult to Spiritual Care [CONS] Routine Cons 01/17/20 19:52 Active Regular Diet [DIET] Diet 01/18/20 Breakfast Active Acetaminophen [Tylenol] Med 01/17/20 19:52 Active 650 mg PO Q4H PRN D5 1/2 NS w/ 20 mEq/L KCl 1,000 ml Med 01/17/20 23:00 Active IV ASDIRECTED LORazepam [Ativan] Med 01/17/20 19:55 Active 1 mg IVPUSH Q2H PRN Nicotine [Habitrol] Med 01/18/20 21:00 Active 21 mg TRDERM DAILY@2100 Ondansetron [Zofran] Med 01/17/20 19:52 Active 4 mg IV Q4H PRN Sodium Chloride 0.9% [Saline Flush] Med 01/17/20 21:32 Active 10 ml FLUSH ASDIRECTED PRN Peripheral IV Insertion Adult [OM.PC] Routine Oth 01/17/20 21:32 Ordered Resuscitation Status Routine Resus Stat 01/17/20 19:52 Ordered EKG 12 Lead [EK] Routine Ther 01/17/20 13:35 Ordered Medication Orders Acetaminophen (Tylenol) 650 mg PO Q4H PRN PRN Reason: Pain (Mild 1-3)/fever Potassium Chloride/Dextrose/Sod Cl (D5 1/2 Ns W/ 20 Meq/L Kcl) 1,000 mls @ 50 mls/hr IV ASDIRECTED JOSE ANTONIO Last Admin: 01/17/20 23:15 Dose: 50 mls/hr Documented by: OMAR Lorazepam (Ativan) 1 mg IVPUSH Q2H PRN PRN Reason: Other Last Admin: 01/18/20 07:39 Dose: 1 mg Documented by: PAOLA Nicotine (Habitrol) 21 mg TRDERM DAILY@2100 JOSE ANTONIO Ondansetron HCl (Zofran) 4 mg IV Q4H PRN PRN Reason: Nausea/Vomiting Sodium Chloride (Saline Flush) 10 ml FLUSH ASDIRECTED PRN PRN Reason: Keep Vein Open Assessment/Plan Comment:: I will continue IV fluid supplementation, adequate nutrition and control of his withdrawal symptoms with benzodiazepines. pier worker is on the case to try and find appropriate placement disposition. If he goes into full-blown delirium tremens we'll admit to the ICU
[2020-01-18] MEDS: Citalopram 20 MG Tab PO SCH (11:06)
[2020-01-18] MEDS: D5 1/2 NS w/ 20 mEq/L KCl 1,000 ML IV SCH (19:28)
[2020-01-18] MEDS: Thiamine 100 MG Tab PO SCH (20:11)
[2020-01-18] MEDS: Nicotine 21 MG/24 Hr Patch TRDERM SCH (20:11)
[2020-01-19] MEDS: LORazepam 2 MG/ML SDV IVPUSH PRN ×3 (01:00→10:17)
[2020-01-19] MEDS: Citalopram 20 MG Tab PO SCH (08:28)
--- NOTE | 2020-01-19 08:42 | PCM.PN ---
- General Info Date of Service: 01/19/20 Functional Status: Reports: Pain Controlled - Review of Systems General: Reports: Other (Withdrawal symptoms) HEENT: Reports: No Symptoms Pulmonary: Reports: No Symptoms Cardiovascular: Reports: Palpitations Gastrointestinal: Reports: No Symptoms Genitourinary: Reports: No Symptoms Musculoskeletal: Reports: No Symptoms Skin: Reports: Diaphoresis Neurological: Reports: No Symptoms Psychiatric: Reports: Confusion, Anxiety - Patient Data Vitals - Most Recent: Last Vital Signs Temp 98.8 F 01/19/20 08:25 Pulse 122 H 01/19/20 08:25 Resp 21 H 01/19/20 08:25 BP 104/74 01/19/20 08:25 Pulse Ox 96 01/19/20 08:25 Weight - Most Recent: 47.854 kg I&O - Last 24 Hours: Intake & Output 01/18/20 01/19/20 01/19/20 22:59 06:59 14:59 Intake Total 626 506 Output Total 0 0 Balance 626 506 Lab Results Last 24 Hours: Laboratory Results - last 24 hr 01/18/20 01/18/20 01/18/20 Range/Units 09:00 09:00 09:00 WBC 7.4 (4.5-12.0) X10-3/uL RBC 4.21 L (4.30-5.75) x10(6)uL Hgb 13.9 (13.5-17.8) g/dL Hct 42.3 (30.0-51.3) % MCV 100.6 H (80-96) fL MCH 32.9 (27.7-33.6) pg MCHC 32.7 (32.2-35.4) g/dL RDW 15.0 (11.5-15.5) % Plt Count 225 (125-369) X10(3)uL MPV 8.6 (7.4-10.4) fL Neut % (Auto) 84.6 H (46-82) % Lymph % (Auto) 7.5 L (13-37) % [place] % (Auto) 5.8 (4-12) % Eos % (Auto) 1 (1.0-5.0) % Baso % (Auto) 2 (0-2) % Neut # (Auto) 6.3 (1.6-8.3) # Lymph # (Auto) 0.6 (0.6-5.0) # [place] # (Auto) 0.4 (0.0-1.3) # Eos # (Auto) 0.0 (0.0-0.8) # Baso # (Auto) 0.1 (0.0-0.2) # Sodium 134 L (135-145) mmol/L Potassium 3.8 (3.5-5.3) mmol/L Chloride 97 L D (100-110) mmol/L Carbon Dioxide 28 (21-32) mmol/L BUN 6 L (7-18) mg/dL Creatinine 1.1 (0.70-1.30) mg/dL Est Cr Clr Drug Dosing 44.91 mL/min Estimated GFR (MDRD) > 60 (>60) BUN/Creatinine Ratio 5.5 L (9-20) Glucose 309 H D (80-116) mg/dL Calcium 8.3 L (8.6-10.2) mg/dL Ethyl Alcohol < 0.03 (<0.03) % Med Orders - Current: Current Medications Acetaminophen (Tylenol) 650 mg PO Q4H PRN PRN Reason: Pain (Mild 1-3)/fever Citalopram Hydrobromide (Celexa) 20 mg PO DAILY [facility] Last Admin: 01/19/20 08:28 Dose: 20 mg Documented by: Potassium Chloride/Dextrose/Sod Cl (D5 1/2 Ns W/ 20 Meq/L Kcl) 1,000 mls @ 50 mls/hr IV Q20H [facility] Last Admin: 01/18/20 19:28 Dose: 50 mls/hr Documented by: Lorazepam (Ativan) 1 mg IVPUSH Q2H PRN PRN Reason: Other Last Admin: 01/19/20 04:10 Dose: 1 mg Documented by: Nicotine (Habitrol) 21 mg TRDERM DAILY@2100 [facility] Last Admin: 01/18/20 20:11 Dose: 21 mg Documented by: Ondansetron HCl (Zofran) 4 mg IV Q4H PRN PRN Reason: Nausea/Vomiting Sodium Chloride (Saline Flush) 10 ml FLUSH ASDIRECTED PRN PRN Reason: Keep Vein Open Thiamine HCl (Vitamin B-1) 100 mg PO BEDTIME [facility] Last Admin: 07/15/20 20:11 Dose: 100 mg Documented by: Discontinued Medications Potassium Chloride/Dextrose/Sod Cl (D5 1/4 Ns With 20 Meq Kcl) 1,000 mls @ 75 mls/hr IV ASDIRECTED JOSE ANTONIO Potassium Chloride/Dextrose/Sod Cl (D5 1/2 Ns W/ 20 Meq/L Kcl) 1,000 mls @ 50 mls/hr IV ASDIRECTED JOSE ANTONIO Stop: 01/18/20 19:59 Last Admin: 01/17/20 23:15 Dose: 50 mls/hr Documented by: Lorazepam (Ativan) 2 mg PO ONETIME ONE Stop: 01/17/20 18:03 Last Admin: 01/17/20 18:09 Dose: 2 mg Documented by: Lorazepam (Ativan) 1 mg IVPUSH Q2H PRN PRN Reason: Other Last Admin: 01/18/20 17:51 Dose: 1 mg Documented by: Nicotine (Habitrol) 21 mg TRDERM DAILY [facility] Last Admin: 01/17/20 22:34 Dose: 21 mg Documented by: - Exam General: Alert, Oriented, Lethargic HEENT: Pupils Equal Neck: Supple Lungs: Clear to Auscultation Cardiovascular: Tachycardia Back Exam: Normal Inspection Neurological: No New Focal Deficit Psy/Mental Status: Alert, Withdrawal Symptoms Sepsis Event Note - Evaluation Sepsis Screening Result: No Definite Risk - Focused Exam Vital Signs: Vital Signs Temp Pulse Resp BP Pulse Ox 01/19/20 08:25 98.8 F 122 H 21 H 104/74 96 01/19/20 04:05 88 22 H 147/87 H 97 01/19/20 03:00 98.8 F 92 22 H 140/86 96 01/19/20 00:55 98.2 F 101 H 22 H 138/84 96 01/18/20 21:45 102 H 22 H 144/86 H 97 Date Exam was Performed: 01/19/20 Time Exam was Performed: 08:39 - Problem List & Annotations (1) Alcohol abuse SNOMED Code(s): 97205435 Code(s): F10.10 - ALCOHOL ABUSE, UNCOMPLICATED Status: Acute Current Visit: Yes (2) MDD (major depressive disorder) SNOMED Code(s): 821346501 Code(s): F32.9 - MAJOR DEPRESSIVE DISORDER, SINGLE EPISODE, UNSPECIFIED Status: Acute Current Visit: Yes Qualifiers: Major depression recurrence: recurrent Active/Remission status: currently active Major depression episode severity: moderate Qualified Code(s): F33.1 - Major depressive disorder, recurrent, moderate (3) Thoracic spine fracture SNOMED Code(s): 369185247 Code(s): S22.009A - UNSP FRACTURE OF UNSP THORACIC VERTEBRA, INIT FOR CLOS FX Status: Chronic Current Visit: Yes Qualifiers: Encounter type: subsequent encounter Fracture healing: with routine healing (4) Alcohol intoxication SNOMED Code(s): 39346809 Code(s): F10.929 - ALCOHOL USE, UNSPECIFIED WITH INTOXICATION, UNSPECIFIED Status: Acute Current Visit: Yes Qualifiers: Complication of substance-induced condition: with unspecified complication Qualified Code(s): F10.929 - Alcohol use, unspecified with intoxication, unspecified (5) Malnutrition SNOMED Code(s): 68494659 Code(s): E46 - UNSPECIFIED PROTEIN-CALORIE MALNUTRITION Status: Acute Current Visit: Yes Qualifiers: Malnutrition type: protein-calorie malnutrition (6) Hyperglycemia SNOMED Code(s): 59953820 Code(s): R73.9 - HYPERGLYCEMIA, UNSPECIFIED Status: Acute Current Visit: Yes - Problem List Review Problem List Initiated/Reviewed/Updated: Yes - My Orders Last 24 Hours: My Active Orders 01/18/20 08:00 CIWAA Assessment [RC] 00,08,16 01/18/20 10:30 Citalopram [Celexa] 20 mg PO DAILY 01/18/20 11:19 OT Evaluation and Treatment [CONS] Routine PT Evaluation and Treatment [CONS] Routine 01/18/20 18:35 LORazepam [Ativan] 1 mg IVPUSH Q2H PRN 01/18/20 19:30 Admission Status [Patient Status] [ADT] Routine 01/18/20 21:00 Thiamine [Vitamin B-1] 100 mg PO BEDTIME 01/19/20 08:39 GLYCOSYLATED HEMOGLOBIN,HGBA1C [CHEM] Routine 01/20/20 05:11 BASIC METABOLIC PANEL,BMP [CHEM] AM CBC WITH AUTO DIFF [HEME] AM - Plan Plan:: Continue CIWA protocol.Has appointment with [place]-discussion of placement to take place. Obtain A1c and repeat labs for AM.
[2020-01-19 11:49] LABS: HEMOGLOBIN A1C 5.5 % (<5.7)
[2020-01-19] MEDS: D5 1/2 NS w/ 20 mEq/L KCl 1,000 ML IV SCH (15:26)
[2020-01-19] MEDS: Thiamine 100 MG Tab PO SCH (21:51)
[2020-01-19] MEDS: Nicotine 21 MG/24 Hr Patch TRDERM SCH (21:51)
[2020-01-20] MEDS: Citalopram 20 MG Tab PO SCH (08:02)
--- NOTE | 2020-01-20 10:36 | PCM.PN ---
- General Info Date of Service: 01/20/20 Admission Dx/Problem (Free Text): He is doing better today, CIWAA overnight was 5. Jorge knows he is at [facility], he states he is here to dry out. Denies any pain, no trouble eating this morning, little bit of tremor this morning. Willing to talk with Chemical dependency unit from [facility] this morning. Electrolytes are corrected. - Patient Data Vitals - Most Recent: Last Vital Signs Temp 98.6 F 01/20/20 07:42 Pulse 87 01/20/20 07:42 Resp 16 01/20/20 07:42 BP 147/88 H 01/20/20 07:42 Pulse Ox 97 01/20/20 07:42 Weight - Most Recent: 105 lb I&O - Last 24 Hours: Intake & Output 01/19/20 01/20/20 01/20/20 22:59 06:59 14:59 Intake Total 416 380 Balance 416 380 Lab Results Last 24 Hours: Laboratory Results - last 24 hr 01/18/20 01/20/20 01/20/20 Range/Units 09:00 06:00 06:00 WBC 6.4 (4.5-12.0) X10-3/uL RBC 4.06 L (4.30-5.75) x10(6)uL Hgb 13.4 L (13.5-17.8) g/dL Hct 41.2 (30.0-51.3) % MCV 101.5 H (80-96) fL MCH 32.9 (27.7-33.6) pg MCHC 32.4 (32.2-35.4) g/dL RDW 15.1 (11.5-15.5) % Plt Count 190 (125-369) X10(3)uL MPV 8.9 (7.4-10.4) fL Neut % (Auto) 77.8 (46-82) % Lymph % (Auto) 13.0 (13-37) % Hudson % (Auto) 5.4 (4-12) % Eos % (Auto) 3 (1.0-5.0) % Baso % (Auto) 1 (0-2) % Neut # (Auto) 5.1 (1.6-8.3) # Lymph # (Auto) 0.8 (0.6-5.0) # Hudson # (Auto) 0.3 (0.0-1.3) # Eos # (Auto) 0.2 (0.0-0.8) # Baso # (Auto) 0.0 (0.0-0.2) # Sodium 136 (135-145) mmol/L Potassium 3.7 (3.5-5.3) mmol/L Chloride 101 (100-110) mmol/L Carbon Dioxide 28 (21-32) mmol/L BUN 7 (7-18) mg/dL Creatinine 0.6 L (0.70-1.30) mg/dL Est Cr Clr Drug Dosing 83.79 mL/min Estimated GFR (MDRD) > 60 (>60) BUN/Creatinine Ratio 11.7 (9-20) Glucose 95 D (80-116) mg/dL Hemoglobin A1c 5.5 (<5.7) % Calcium 8.6 (8.6-10.2) mg/dL Med Orders - Current: Current Medications Acetaminophen (Tylenol) 650 mg PO Q4H PRN PRN Reason: Pain (Mild 1-3)/fever Citalopram Hydrobromide (Celexa) 20 mg PO DAILY [facility] Last Admin: 01/20/20 08:02 Dose: 20 mg Documented by: Lorazepam (Ativan) 1 mg IVPUSH Q2H PRN PRN Reason: Other Last Admin: 01/19/20 10:17 Dose: 1 mg Documented by: Nicotine (Habitrol) 21 mg TRDERM DAILY@2100 [facility] Last Admin: 01/19/20 21:51 Dose: 21 mg Documented by: Ondansetron HCl (Zofran) 4 mg IV Q4H PRN PRN Reason: Nausea/Vomiting Sodium Chloride (Saline Flush) 10 ml FLUSH ASDIRECTED PRN PRN Reason: Keep Vein Open Thiamine HCl (Vitamin B-1) 100 mg PO BEDTIME [facility] Last Admin: 01/19/20 21:51 Dose: 100 mg Documented by: Discontinued Medications Potassium Chloride/Dextrose/Sod Cl (D5 1/4 Ns With 20 Meq Kcl) 1,000 mls @ 75 mls/hr IV ASDIRECTED [facility] Potassium Chloride/Dextrose/Sod Cl (D5 1/2 Ns W/ 20 Meq/L Kcl) 1,000 mls @ 50 mls/hr IV ASDIRECTED [facility] Stop: 01/18/20 19:59 Last Admin: 01/17/20 23:15 Dose: 50 mls/hr Documented by: Potassium Chloride/Dextrose/Sod Cl (D5 1/2 Ns W/ 20 Meq/L Kcl) 1,000 mls @ 50 mls/hr IV Q20H [facility] Last Admin: 01/19/20 15:26 Dose: 50 mls/hr Documented by: Lorazepam (Ativan) 2 mg PO ONETIME ONE Stop: 01/17/20 18:03 Last Admin: 01/17/20 18:09 Dose: 2 mg Documented by: Lorazepam (Ativan) 1 mg IVPUSH Q2H PRN PRN Reason: Other Last Admin: 01/18/20 17:51 Dose: 1 mg Documented by: Nicotine (Habitrol) 21 mg TRDERM DAILY [facility] Last Admin: 01/17/20 22:34 Dose: 21 mg Documented by: - Exam General: Alert, Oriented, Cooperative, No Acute Distress Lungs: Clear to Auscultation, Normal Respiratory Effort Cardiovascular: Regular Rate, Regular Rhythm GI/Abdominal Exam: Normal Bowel Sounds, Soft, Non-Tender, No Distention Extremities: No Pedal Edema Peripheral Pulses: 2+: Radial (L), Radial (R), Posterior Tibial (L), Posterior Tibial (R), Dorsalis Pedis (L), Dorsalis Pedis (R) Skin: Warm, Dry, Intact, Ecchymosis (BLE) Neurological: Normal Speech, Strength Equal Bilateral, Other (fine tremor of bilateral hands) Sepsis Event Note - Evaluation Sepsis Screening Result: No Definite Risk - Focused Exam Vital Signs: Vital Signs Temp Pulse Resp BP Pulse Ox 01/20/20 07:42 98.6 F 87 16 147/88 H 97 01/20/20 05:47 98.1 F 16 136/81 96 01/20/20 04:00 76 16 132/80 95 01/20/20 01:56 98.5 F 16 134/82 94 L 01/19/20 23:47 98.6 F 16 128/87 95 Date Exam was Performed: 01/20/20 Time Exam was Performed: 10:31 - Problem List & Annotations (1) Alcohol abuse SNOMED Code(s): 95804914 Code(s): F10.10 - ALCOHOL ABUSE, UNCOMPLICATED Status: Acute Current Visit: Yes (2) Alcohol withdrawal SNOMED Code(s): 564308808 Code(s): F10.239 - ALCOHOL DEPENDENCE WITH WITHDRAWAL, UNSPECIFIED Status: Resolved Current Visit: Yes Qualifiers: Complication of substance-induced condition: with delirium Qualified Code(s): F10.231 - Alcohol dependence with withdrawal delirium (3) Alcohol intoxication SNOMED Code(s): 76334178 Code(s): F10.929 - ALCOHOL USE, UNSPECIFIED WITH INTOXICATION, UNSPECIFIED Status: Resolved Current Visit: Yes Qualifiers: Complication of substance-induced condition: with unspecified complication Qualified Code(s): F10.929 - Alcohol use, unspecified with intoxication, unspecified (4) MDD (major depressive disorder) SNOMED Code(s): 536239559 Code(s): F32.9 - MAJOR DEPRESSIVE DISORDER, SINGLE EPISODE, UNSPECIFIED Status: Chronic Current Visit: Yes Qualifiers: Major depression recurrence: recurrent Active/Remission status: currently active Major depression episode severity: moderate Qualified Code(s): F33.1 - Major depressive disorder, recurrent, moderate (5) Malnutrition SNOMED Code(s): 25998136 Code(s): E46 - UNSPECIFIED PROTEIN-CALORIE MALNUTRITION Status: Chronic Current Visit: Yes Qualifiers: Malnutrition type: protein-calorie malnutrition (6) Thoracic spine fracture SNOMED Code(s): 247766081 Code(s): S22.009A - UNSP FRACTURE OF UNSP THORACIC VERTEBRA, INIT FOR CLOS FX Status: Chronic Current Visit: Yes Onset Date: ~10/30/19 Qualifiers: Encounter type: subsequent encounter Thoracic vertebra fracture level: T8 Fracture healing: with routine healing - Problem List Review Problem List Initiated/Reviewed/Updated: Yes - My Orders Last 24 Hours: My Active Orders 01/20/20 08:56 Patient Status [ADT] Routine 01/20/20 10:28 Convert IV to Saline Lock [OM.PC] Routine - Plan Plan:: 1. Continue CIWA protocol. 2. Change him from ICU to Med/Surg inpatient status. D/C telemetry. 3. Has Zoom appointment with [facility]-discussion of placement to take place. 4. A1c was 5.5%, well controlled. 5. Labs corrected today. 6. If he is accepted into [facility] program he could go today. But he needs chemical dependence placement for discharge as it is requirement by his job to stay employed.
[2020-01-20] MEDS: Thiamine 100 MG Tab PO SCH (20:50)
[2020-01-20] MEDS: Nicotine 21 MG/24 Hr Patch TRDERM SCH (20:51)
[2020-01-21] MEDS: Citalopram 20 MG Tab PO SCH (08:08)
--- NOTE | 2020-01-21 10:45 | PCM.PN ---
- General Info Date of Service: 01/21/20 Admission Dx/Problem (Free Text): Jorge's appetite is improving, ate all his breakfast, did not require assistance this morning when he got up. PT/OT did recommend keeping for a few more days of therapy due to weakness and deconditioning. He states prior to coming in to hospital he hadn't eaten in 5 days, no appetite. He had meeting with [facility] chemical dependency unit over the phone yesterday, they would take him into treatment, they are working on prior authorization from his insurance and could maybe take him first part of next week. Had normal BM, no complaints of pain. - Patient Data Vitals - Most Recent: Last Vital Signs Temp 97.5 F 01/21/20 08:50 Pulse 83 01/21/20 08:50 Resp 16 01/21/20 08:50 BP 126/74 01/21/20 08:50 Pulse Ox 96 01/21/20 08:50 Weight - Most Recent: 106 lb 8 oz I&O - Last 24 Hours: Intake & Output 01/20/20 01/21/20 01/21/20 22:59 06:59 14:59 Intake Total 400 50 Output Total 0 Balance 400 50 Med Orders - Current: Current Medications Acetaminophen (Tylenol) 650 mg PO Q4H PRN PRN Reason: Pain (Mild 1-3)/fever Citalopram Hydrobromide (Celexa) 20 mg PO DAILY [facility] Last Admin: 01/21/20 08:08 Dose: 20 mg Documented by: Lorazepam (Ativan) 1 mg IVPUSH Q2H PRN PRN Reason: Other Last Admin: 01/19/20 10:17 Dose: 1 mg Documented by: Nicotine (Habitrol) 21 mg TRDERM DAILY@2100 [facility] Last Admin: 01/20/20 20:51 Dose: 21 mg Documented by: Ondansetron HCl (Zofran) 4 mg IV Q4H PRN PRN Reason: Nausea/Vomiting Sodium Chloride (Saline Flush) 10 ml FLUSH ASDIRECTED PRN PRN Reason: Keep Vein Open Last Admin: 01/21/20 08:09 Dose: 10 ml Documented by: Thiamine HCl (Vitamin B-1) 100 mg PO BEDTIME [facility] Last Admin: 01/20/20 20:50 Dose: 100 mg Documented by: Discontinued Medications Potassium Chloride/Dextrose/Sod Cl (D5 1/4 Ns With 20 Meq Kcl) 1,000 mls @ 75 mls/hr IV ASDIRECTED [facility] Potassium Chloride/Dextrose/Sod Cl (D5 1/2 Ns W/ 20 Meq/L Kcl) 1,000 mls @ 50 mls/hr IV ASDIRECTED [facility] Stop: 01/18/20 19:59 Last Admin: 01/17/20 23:15 Dose: 50 mls/hr Documented by: Potassium Chloride/Dextrose/Sod Cl (D5 1/2 Ns W/ 20 Meq/L Kcl) 1,000 mls @ 50 mls/hr IV Q20H [facility] Last Admin: 01/19/20 15:26 Dose: 50 mls/hr Documented by: Lorazepam (Ativan) 2 mg PO ONETIME ONE Stop: 01/17/20 18:03 Last Admin: 01/17/20 18:09 Dose: 2 mg Documented by: Lorazepam (Ativan) 1 mg IVPUSH Q2H PRN PRN Reason: Other Last Admin: 01/18/20 17:51 Dose: 1 mg Documented by: Nicotine (Habitrol) 21 mg TRDERM DAILY [facility] Last Admin: 01/17/20 22:34 Dose: 21 mg Documented by: - Exam General: Alert, Oriented, Cooperative, No Acute Distress Lungs: Clear to Auscultation, Normal Respiratory Effort Cardiovascular: Regular Rate, Regular Rhythm GI/Abdominal Exam: Normal Bowel Sounds, Soft, Non-Tender, No Distention Extremities: No Pedal Edema Sepsis Event Note - Evaluation Sepsis Screening Result: No Definite Risk - Focused Exam Vital Signs: Vital Signs Temp Temp Pulse Resp BP BP Pulse Ox 01/21/20 08:50 97.5 F 83 16 126/74 96 01/21/20 03:34 97.5 F 88 18 138/74 96 01/20/20 23:15 97.7 F 86 16 121/84 95 Date Exam was Performed: 01/21/20 Time Exam was Performed: 10:39 - Problem List & Annotations (1) Alcohol abuse SNOMED Code(s): 56977556 Code(s): F10.10 - ALCOHOL ABUSE, UNCOMPLICATED Status: Acute Current Visit: Yes (2) Alcohol withdrawal SNOMED Code(s): 402027691 Code(s): F10.239 - ALCOHOL DEPENDENCE WITH WITHDRAWAL, UNSPECIFIED Status: Resolved Current Visit: Yes Qualifiers: Complication of substance-induced condition: with delirium Qualified Code(s): F10.231 - Alcohol dependence with withdrawal delirium (3) Alcohol intoxication SNOMED Code(s): 25846177 Code(s): F10.929 - ALCOHOL USE, UNSPECIFIED WITH INTOXICATION, UNSPECIFIED Status: Resolved Current Visit: Yes Qualifiers: Complication of substance-induced condition: with unspecified complication Qualified Code(s): F10.929 - Alcohol use, unspecified with intoxication, unspecified (4) MDD (major depressive disorder) SNOMED Code(s): 654600896 Code(s): F32.9 - MAJOR DEPRESSIVE DISORDER, SINGLE EPISODE, UNSPECIFIED Status: Chronic Current Visit: Yes Qualifiers: Major depression recurrence: recurrent Active/Remission status: currently active Major depression episode severity: moderate Qualified Code(s): F33.1 - Major depressive disorder, recurrent, moderate (5) Malnutrition SNOMED Code(s): 68055833 Code(s): E46 - UNSPECIFIED PROTEIN-CALORIE MALNUTRITION Status: Chronic Current Visit: Yes Qualifiers: Malnutrition type: protein-calorie malnutrition (6) Thoracic spine fracture SNOMED Code(s): 540089426 Code(s): S22.009A - UNSP FRACTURE OF UNSP THORACIC VERTEBRA, INIT FOR CLOS FX Status: Chronic Current Visit: Yes Onset Date: ~10/30/19 Qualifiers: Encounter type: subsequent encounter Thoracic vertebra fracture level: T8 Fracture healing: with routine healing - Problem List Review Problem List Initiated/Reviewed/Updated: Yes - My Orders Last 24 Hours: My Active Orders 01/20/20 10:28 Convert IV to Saline Lock [OM.PC] Routine - Plan Plan:: 1. Continue CIWA protocol, score 4, has not required Ativan for >48 hours. Tentatively accepted in [place] pending approval by insurance. 2. Continue PT/OT for strengthening. 3. Spoke with his sister Winter on his progress, she is staying in contact with his work, they communicated they would support him getting back on his feet. Dougie garduno update her on Thursday when we know more from [place] on the approval status from insurance.
[2020-01-21] MEDS: Thiamine 100 MG Tab PO SCH (20:48)
[2020-01-21] MEDS: Nicotine 21 MG/24 Hr Patch TRDERM SCH (20:48)
[2020-01-22] MEDS: Citalopram 20 MG Tab PO SCH (07:59)
--- NOTE | 2020-01-22 11:15 | PCM.PN ---
- General Info Date of Service: 01/22/20 Admission Dx/Problem (Free Text): Jorge states he is feeling stronger, has been eating all his meals, 100%, no pain or complaints today. Doesn't feel real shaky. Ambulating on his own without walker in the room. Talked with his sister yesterday, knows she will be taking him to [place]. Discussed we will know more tomorrow once we talk with them on insurance approval. - Patient Data Vitals - Most Recent: Last Vital Signs Temp 98.3 F 01/22/20 07:40 Pulse 65 01/22/20 07:40 Resp 16 01/22/20 07:40 BP 140/74 01/22/20 07:40 Pulse Ox 96 01/22/20 07:40 Weight - Most Recent: 107 lb 12.8 oz I&O - Last 24 Hours: Intake & Output 01/21/20 01/22/20 01/22/20 22:59 06:59 14:59 Intake Total 500 Output Total 0 Balance 500 Med Orders - Current: Current Medications Acetaminophen (Tylenol) 650 mg PO Q4H PRN PRN Reason: Pain (Mild 1-3)/fever Citalopram Hydrobromide (Celexa) 20 mg PO DAILY [facility] Last Admin: 01/22/20 07:59 Dose: 20 mg Documented by: Lorazepam (Ativan) 1 mg IVPUSH Q2H PRN PRN Reason: Other Last Admin: 01/19/20 10:17 Dose: 1 mg Documented by: Nicotine (Habitrol) 21 mg TRDERM DAILY@2100 [facility] Last Admin: 01/21/20 20:48 Dose: 21 mg Documented by: Ondansetron HCl (Zofran) 4 mg IV Q4H PRN PRN Reason: Nausea/Vomiting Sodium Chloride (Saline Flush) 10 ml FLUSH ASDIRECTED PRN PRN Reason: Keep Vein Open Last Admin: 01/21/20 08:09 Dose: 10 ml Documented by: Thiamine HCl (Vitamin B-1) 100 mg PO BEDTIME [facility] Last Admin: 01/21/20 20:48 Dose: 100 mg Documented by: Discontinued Medications Potassium Chloride/Dextrose/Sod Cl (D5 1/4 Ns With 20 Meq Kcl) 1,000 mls @ 75 mls/hr IV ASDIRECTED [facility] Potassium Chloride/Dextrose/Sod Cl (D5 1/2 Ns W/ 20 Meq/L Kcl) 1,000 mls @ 50 mls/hr IV ASDIRECTED [facility] Stop: 01/18/20 19:59 Last Admin: 01/17/20 23:15 Dose: 50 mls/hr Documented by: Potassium Chloride/Dextrose/Sod Cl (D5 1/2 Ns W/ 20 Meq/L Kcl) 1,000 mls @ 50 mls/hr IV Q20H [facility] Last Admin: 01/19/20 15:26 Dose: 50 mls/hr Documented by: Lorazepam (Ativan) 2 mg PO ONETIME ONE Stop: 01/17/20 18:03 Last Admin: 01/17/20 18:09 Dose: 2 mg Documented by: Lorazepam (Ativan) 1 mg IVPUSH Q2H PRN PRN Reason: Other Last Admin: 01/18/20 17:51 Dose: 1 mg Documented by: Nicotine (Habitrol) 21 mg TRDERM DAILY [facility] Last Admin: 01/17/20 22:34 Dose: 21 mg Documented by: - Exam General: Alert, Oriented, Cooperative, No Acute Distress Lungs: Clear to Auscultation, Normal Respiratory Effort Cardiovascular: Regular Rate, Regular Rhythm GI/Abdominal Exam: Normal Bowel Sounds, Soft, Non-Tender, No Distention Extremities: No Pedal Edema Neurological: No New Focal Deficit, Other (tremor L>R, stable.) Sepsis Event Note - Evaluation Sepsis Screening Result: No Definite Risk - Focused Exam Vital Signs: Vital Signs Temp Pulse Resp BP BP Pulse Ox 01/22/20 07:40 98.3 F 65 16 140/74 96 01/22/20 04:05 97.2 F 84 16 135/76 96 01/21/20 23:50 97.9 F 76 16 142/80 H 97 Date Exam was Performed: 01/22/20 Time Exam was Performed: 11:11 - Problem List & Annotations (1) Alcohol abuse SNOMED Code(s): 99459536 Code(s): F10.10 - ALCOHOL ABUSE, UNCOMPLICATED Status: Acute Current Visit: Yes (2) Alcohol withdrawal SNOMED Code(s): 606929649 Code(s): F10.239 - ALCOHOL DEPENDENCE WITH WITHDRAWAL, UNSPECIFIED Status: Resolved Current Visit: Yes Qualifiers: Complication of substance-induced condition: with delirium Qualified Code(s): F10.231 - Alcohol dependence with withdrawal delirium (3) Alcohol intoxication SNOMED Code(s): 60783712 Code(s): F10.929 - ALCOHOL USE, UNSPECIFIED WITH INTOXICATION, UNSPECIFIED Status: Resolved Current Visit: Yes Qualifiers: Complication of substance-induced condition: with unspecified complication Qualified Code(s): F10.929 - Alcohol use, unspecified with intoxication, unspecified (4) MDD (major depressive disorder) SNOMED Code(s): 911507130 Code(s): F32.9 - MAJOR DEPRESSIVE DISORDER, SINGLE EPISODE, UNSPECIFIED Status: Chronic Current Visit: Yes Qualifiers: Major depression recurrence: recurrent Active/Remission status: currently active Major depression episode severity: moderate Qualified Code(s): F33.1 - Major depressive disorder, recurrent, moderate (5) Malnutrition SNOMED Code(s): 73121789 Code(s): E46 - UNSPECIFIED PROTEIN-CALORIE MALNUTRITION Status: Chronic Current Visit: Yes Qualifiers: Malnutrition type: protein-calorie malnutrition (6) Thoracic spine fracture SNOMED Code(s): 552621805 Code(s): S22.009A - UNSP FRACTURE OF UNSP THORACIC VERTEBRA, INIT FOR CLOS FX Status: Chronic Current Visit: Yes Onset Date: ~10/30/19 Qualifiers: Encounter type: subsequent encounter Thoracic vertebra fracture level: T8 Fracture healing: with routine healing - Problem List Review Problem List Initiated/Reviewed/Updated: Yes - Plan Plan:: 1. Continue CIWA protocol, score 4, stable, has not required Ativan for >72 hours. Tentatively accepted in [place] pending approval by insurance. 2. Continue PT/OT for strengthening. 3. Discharge planning tomorrow on when we can discharge to [facility].
[2020-01-22] MEDS: Acetaminophen 325 MG Tab PO PRN ×2 (13:48→21:49)
[2020-01-22] MEDS: Thiamine 100 MG Tab PO SCH (20:47)
[2020-01-22] MEDS: LORazepam 0.5 MG Tab PO PRN (20:47)
[2020-01-22] MEDS: Nicotine 21 MG/24 Hr Patch TRDERM SCH (20:47)
[2020-01-23] MEDS: LORazepam 0.5 MG Tab PO PRN ×4 (02:10→21:42)
[2020-01-23] MEDS ORDERED: LORazepam 2 MG/ML SDV IM ONE (03:58)
--- NOTE | 2020-01-23 04:05 | PCM.SN.2 ---
- Free Text/Narrative Note: pt not slept all night, squatting on floor when I entered room, says he "wants to leave" in order "to buy something" delirious with mild agitation, HR 110, lungs clear, CV RRR given Ativan 0.5 mg PO one hour earlier without benefit had slept previous 2 nights scheduled to go to [facility] to alc tx pgm today ASSESS delirium PLAN Ativan 2 mg IM
[2020-01-23] MEDS ORDERED: LORazepam 2 MG/ML SDV IM PRN (08:31)
[2020-01-23] MEDS: Citalopram 20 MG Tab PO SCH (09:33)
--- NOTE | 2020-01-23 17:00 | PCM.PN ---
- General Info Date of Service: 01/23/20 Admission Dx/Problem (Free Text): Jorge had rough day yesterday afternoon, & overnight, more confused, had incident where came out to nurses station and incontinent of urine and stool on the floor, was redirectable during the day, his IV had been pulled because had not been used in 96 hours but more agitated and CIWAA score went up to 20s again, required Ativan 2 mg IM overnight, woke up to take am pills then went back to sleep, check on him later around noon, he was alert and oriented, knew he was in [place], at the hospital. CIWAA back down to 3. He is approved for [facility], they need him discharged tomorrow afternoon and stay overnight in hotel there as they want to do admission at 830 am, they will be doing COVID there so did not want us doing here as they still would do it there. His sister will pick him up tomorrow as long as he remains stable, will be bringing his clothes. - Patient Data Vitals - Most Recent: Last Vital Signs Temp 98.5 F 01/23/20 16:00 Pulse 80 01/23/20 16:00 Resp 19 01/23/20 16:00 BP 124/80 01/23/20 16:00 Pulse Ox 94 L 01/23/20 16:00 Weight - Most Recent: 107 lb 14.4 oz I&O - Last 24 Hours: Intake & Output 01/23/20 01/23/20 01/23/20 06:59 14:59 22:59 Intake Total 100 Output Total 0 Balance 100 Lab Results Last 24 Hours: Laboratory Results - last 24 hr 01/23/20 01/23/20 Range/Units 08:50 08:50 WBC 6.4 (4.5-12.0) X10-3/uL RBC 3.91 L (4.30-5.75) x10(6)uL Hgb 13.0 L (13.5-17.8) g/dL Hct 39.8 (30.0-51.3) % MCV 101.8 H (80-96) fL MCH 33.1 (27.7-33.6) pg MCHC 32.5 (32.2-35.4) g/dL RDW 14.7 (11.5-15.5) % Plt Count 201 (125-369) X10(3)uL MPV 8.9 (7.4-10.4) fL Neut % (Auto) 75.8 (46-82) % Lymph % (Auto) 10.6 L (13-37) % [place] % (Auto) 10.8 (4-12) % Eos % (Auto) 2 (1.0-5.0) % Baso % (Auto) 1 (0-2) % Neut # (Auto) 4.8 (1.6-8.3) # Lymph # (Auto) 0.7 (0.6-5.0) # [place] # (Auto) 0.7 (0.0-1.3) # Eos # (Auto) 0.1 (0.0-0.8) # Baso # (Auto) 0.1 (0.0-0.2) # Sodium 139 (135-145) mmol/L Potassium 3.7 (3.5-5.3) mmol/L Chloride 101 (100-110) mmol/L Carbon Dioxide 32 (21-32) mmol/L BUN 12 (7-18) mg/dL Creatinine 0.5 L (0.70-1.30) mg/dL Est Cr Clr Drug Dosing 103.32 mL/min Estimated GFR (MDRD) > 60 (>60) BUN/Creatinine Ratio 24.0 H (9-20) Glucose 99 (80-116) mg/dL Calcium 8.4 L (8.6-10.2) mg/dL Med Orders - Current: Current Medications Acetaminophen (Tylenol) 650 mg PO Q4H PRN PRN Reason: Pain (Mild 1-3)/fever Last Admin: 01/22/20 21:49 Dose: 650 mg Documented by: Citalopram Hydrobromide (Celexa) 20 mg PO DAILY [facility] Last Admin: 01/23/20 09:33 Dose: 20 mg Documented by: Lorazepam (Ativan) 1 mg PO Q4H PRN PRN Reason: Withdrawal Symptoms Last Admin: 01/23/20 09:32 Dose: 1 mg Documented by: Lorazepam (Ativan) 2 mg IM Q6H PRN PRN Reason: Agitation Nicotine (Habitrol) 21 mg TRDERM DAILY@2100 [facility] Last Admin: 01/22/20 20:47 Dose: 21 mg Documented by: Ondansetron HCl (Zofran) 4 mg IV Q4H PRN PRN Reason: Nausea/Vomiting Sodium Chloride (Saline Flush) 10 ml FLUSH ASDIRECTED PRN PRN Reason: Keep Vein Open Last Admin: 01/21/20 08:09 Dose: 10 ml Documented by: Thiamine HCl (Vitamin B-1) 100 mg PO BEDTIME [facility] Last Admin: 01/22/20 20:47 Dose: 100 mg Documented by: Discontinued Medications Potassium Chloride/Dextrose/Sod Cl (D5 1/4 Ns With 20 Meq Kcl) 1,000 mls @ 75 mls/hr IV ASDIRECTED [facility] Potassium Chloride/Dextrose/Sod Cl (D5 1/2 Ns W/ 20 Meq/L Kcl) 1,000 mls @ 50 mls/hr IV ASDIRECTED [facility] Stop: 01/18/20 19:59 Last Admin: 01/17/20 23:15 Dose: 50 mls/hr Documented by: Potassium Chloride/Dextrose/Sod Cl (D5 1/2 Ns W/ 20 Meq/L Kcl) 1,000 mls @ 50 mls/hr IV Q20H [facility] Last Admin: 01/19/20 15:26 Dose: 50 mls/hr Documented by: Lorazepam (Ativan) 2 mg PO ONETIME ONE Stop: 01/17/20 18:03 Last Admin: 01/17/20 18:09 Dose: 2 mg Documented by: Lorazepam (Ativan) 1 mg IVPUSH Q2H PRN PRN Reason: Other Last Admin: 01/18/20 17:51 Dose: 1 mg Documented by: Lorazepam (Ativan) 1 mg IVPUSH Q2H PRN PRN Reason: Other Last Admin: 01/19/20 10:17 Dose: 1 mg Documented by: Lorazepam (Ativan) 0.5 mg PO Q4H PRN PRN Reason: Withdrawal Symptoms Last Admin: 01/23/20 02:10 Dose: 0.5 mg Documented by: Lorazepam (Ativan) 2 mg IM ONETIME ONE Stop: 01/23/20 03:59 Last Admin: 01/23/20 04:00 Dose: 2 mg Documented by: Nicotine (Habitrol) 21 mg TRDERM DAILY [facility] Last Admin: 01/17/20 22:34 Dose: 21 mg Documented by: - Exam General: Alert, Oriented, Cooperative, No Acute Distress Lungs: Clear to Auscultation, Normal Respiratory Effort Cardiovascular: Regular Rate, Regular Rhythm GI/Abdominal Exam: Normal Bowel Sounds, Soft, Non-Tender, No Distention Extremities: No Pedal Edema Peripheral Pulses: 2+: Radial (L), Radial (R) Sepsis Event Note - Evaluation Sepsis Screening Result: No Definite Risk - Focused Exam Vital Signs: Vital Signs Temp Pulse Resp BP Pulse Ox 01/23/20 16:00 98.5 F 80 19 124/80 94 L 01/23/20 09:30 98.3 F 79 16 109/64 95 Date Exam was Performed: 01/23/20 Time Exam was Performed: 16:51 - Problem List & Annotations (1) Alcohol abuse SNOMED Code(s): 23216289 Code(s): F10.10 - ALCOHOL ABUSE, UNCOMPLICATED Status: Acute Current Visit: Yes (2) Alcohol withdrawal SNOMED Code(s): 673154016 Code(s): F10.239 - ALCOHOL DEPENDENCE WITH WITHDRAWAL, UNSPECIFIED Status: Acute Current Visit: Yes Qualifiers: Complication of substance-induced condition: with delirium Qualified Code(s): F10.231 - Alcohol dependence with withdrawal delirium (3) Alcohol intoxication SNOMED Code(s): 57468072 Code(s): F10.929 - ALCOHOL USE, UNSPECIFIED WITH INTOXICATION, UNSPECIFIED Status: Resolved Current Visit: Yes Qualifiers: Complication of substance-induced condition: with unspecified complication Qualified Code(s): F10.929 - Alcohol use, unspecified with intoxication, unspecified (4) MDD (major depressive disorder) SNOMED Code(s): 316999367 Code(s): F32.9 - MAJOR DEPRESSIVE DISORDER, SINGLE EPISODE, UNSPECIFIED Status: Chronic Current Visit: Yes Qualifiers: Major depression recurrence: recurrent Active/Remission status: currently active Major depression episode severity: moderate Qualified Code(s): F33.1 - Major depressive disorder, recurrent, moderate (5) Malnutrition SNOMED Code(s): 96275425 Code(s): E46 - UNSPECIFIED PROTEIN-CALORIE MALNUTRITION Status: Chronic Current Visit: Yes Qualifiers: Malnutrition type: protein-calorie malnutrition (6) Thoracic spine fracture SNOMED Code(s): 336437338 Code(s): S22.009A - UNSP FRACTURE OF UNSP THORACIC VERTEBRA, INIT FOR CLOS FX Status: Chronic Current Visit: Yes Onset Date: ~10/30/19 Qualifiers: Encounter type: subsequent encounter Thoracic vertebra fracture level: T8 Fracture healing: with routine healing - Problem List Review Problem List Initiated/Reviewed/Updated: Yes - My Orders Last 24 Hours: My Active Orders 01/23/20 08:21 UA W/MICROSCOPIC [URIN] Routine 01/23/20 08:30 LORazepam [Ativan] 1 mg PO Q4H PRN 01/23/20 08:31 LORazepam [Ativan] 2 mg IM Q6H PRN - Plan Plan:: 1. Continue CIWA protocol, went up overnight, back down today, required Ativan overnight IM and oral this morning. 2. Continue PT/OT for strengthening. 3. Discharge tomorrow afternoon to go to [facility], will stay overnight with his sister to be admitted early next morning to [facility] Chemical dependency unit, COVID testing to be done there.
[2020-01-23] MEDS: Thiamine 100 MG Tab PO SCH (21:45)
[2020-01-23] MEDS: Nicotine 21 MG/24 Hr Patch TRDERM SCH (21:45)
[2020-01-24] MEDS: LORazepam 0.5 MG Tab PO PRN (02:14)
[2020-01-24] MEDS: Citalopram 20 MG Tab PO SCH (08:45)
[2020-01-24] MEDS ORDERED: LORazepam 1 MG Tab PO PRN (09:05)
--- NOTE | 2020-01-24 17:15 | PCM.PN ---
- General Info Date of Service: 01/24/20 Admission Dx/Problem (Free Text): Jorge required 3 doses of Ativan overnight, last dose around midnight. This morning he's alert, can tell me everything he had for breakfast, knows where he is at. He is getting up without assistance to go to bathroom, have to cue to remind him to call for assistance, redirects easily. [facility] called back and notified discharge planning that they will have to delay his admission due to the Ativan he had overnight, he has to be 48 hours without Ativan before they can admit so since he had at midnight, will have to wait a day and if he does not require any then would be discharged Wed late afternoon for trip to [place] for [facility] admission. - Patient Data Vitals - Most Recent: Last Vital Signs Temp 98.4 F 01/24/20 16:00 Pulse 79 01/24/20 16:00 Resp 16 01/24/20 16:00 BP 130/71 01/24/20 16:00 Pulse Ox 95 01/24/20 16:00 Weight - Most Recent: 103 lb 3.2 oz Lab Results Last 24 Hours: Laboratory Results - last 24 hr 01/23/20 Range/Units 16:59 Urine Color Yellow (YELLOW) Urine Appearance Slightly cloudy (CLEAR) Urine pH 5.0 (5.0-6.5) Ur Specific [place] 1.020 (1.010-1.025) Urine Protein Trace (NEGATIVE) mg/dL Urine Glucose (UA) Normal (NORMAL) mg/dL Urine Ketones 15 H (NEGATIVE) mg/dL Urine Occult Blood Negative (NEGATIVE) Urine Nitrite Negative (NEGATIVE) Urine Bilirubin Small H (NEGATIVE) Urine Urobilinogen 1 H (NEGATIVE) mg/dL Ur Leukocyte Esterase Negative (NEGATIVE) U Hyaline Cast (Auto) Few H (NS) Urine RBC 0-5 (0-5) Urine WBC 0-5 (0-5) Ur Squamous Epith Cells Occasional (NS,R,O) Amorphous Sediment Few Urine Mucus Many H (NS) Med Orders - Current: Current Medications Acetaminophen (Tylenol) 650 mg PO Q4H PRN PRN Reason: Pain (Mild 1-3)/fever Last Admin: 01/22/20 21:49 Dose: 650 mg Documented by: Citalopram Hydrobromide (Celexa) 20 mg PO DAILY [facility] Last Admin: 01/24/20 08:45 Dose: 20 mg Documented by: Lorazepam (Ativan) 2 mg IM Q6H PRN PRN Reason: Agitation Lorazepam (Ativan) 1 mg PO Q4H PRN PRN Reason: Withdrawal Symptoms Nicotine (Habitrol) 21 mg TRDERM DAILY@2100 [facility] Last Admin: 01/23/20 21:45 Dose: 21 mg Documented by: Ondansetron HCl (Zofran) 4 mg IV Q4H PRN PRN Reason: Nausea/Vomiting Sodium Chloride (Saline Flush) 10 ml FLUSH ASDIRECTED PRN PRN Reason: Keep Vein Open Last Admin: 01/21/20 08:09 Dose: 10 ml Documented by: Thiamine HCl (Vitamin B-1) 100 mg PO BEDTIME [facility] Last Admin: 01/23/20 21:45 Dose: 100 mg Documented by: Discontinued Medications Potassium Chloride/Dextrose/Sod Cl (D5 1/4 Ns With 20 Meq Kcl) 1,000 mls @ 75 mls/hr IV ASDIRECTED [facility] Potassium Chloride/Dextrose/Sod Cl (D5 1/2 Ns W/ 20 Meq/L Kcl) 1,000 mls @ 50 mls/hr IV ASDIRECTED [facility] Stop: 01/18/20 19:59 Last Admin: 01/17/20 23:15 Dose: 50 mls/hr Documented by: Potassium Chloride/Dextrose/Sod Cl (D5 1/2 Ns W/ 20 Meq/L Kcl) 1,000 mls @ 50 mls/hr IV Q20H [facility] Last Admin: 01/19/20 15:26 Dose: 50 mls/hr Documented by: Lorazepam (Ativan) 2 mg PO ONETIME ONE Stop: 01/17/20 18:03 Last Admin: 01/17/20 18:09 Dose: 2 mg Documented by: Lorazepam (Ativan) 1 mg IVPUSH Q2H PRN PRN Reason: Other Last Admin: 01/18/20 17:51 Dose: 1 mg Documented by: Lorazepam (Ativan) 1 mg IVPUSH Q2H PRN PRN Reason: Other Last Admin: 01/19/20 10:17 Dose: 1 mg Documented by: Lorazepam (Ativan) 0.5 mg PO Q4H PRN PRN Reason: Withdrawal Symptoms Last Admin: 01/23/20 02:10 Dose: 0.5 mg Documented by: Lorazepam (Ativan) 2 mg IM ONETIME ONE Stop: 01/23/20 03:59 Last Admin: 01/23/20 04:00 Dose: 2 mg Documented by: Lorazepam (Ativan) 1 mg PO Q4H PRN PRN Reason: Withdrawal Symptoms Last Admin: 01/24/20 02:14 Dose: 1 mg Documented by: Nicotine (Habitrol) 21 mg TRDERM DAILY [facility] Last Admin: 01/17/20 22:34 Dose: 21 mg Documented by: - Exam General: Alert, Oriented, Cooperative, No Acute Distress Lungs: Clear to Auscultation, Normal Respiratory Effort Cardiovascular: Regular Rate, Regular Rhythm GI/Abdominal Exam: Normal Bowel Sounds, Soft, Non-Tender, No Distention Back Exam: Normal Inspection Extremities: No Pedal Edema Peripheral Pulses: 2+: Radial (L), Radial (R) Psy/Mental Status: No: Hallucinations Sepsis Event Note - Evaluation Sepsis Screening Result: No Definite Risk - Focused Exam Vital Signs: Vital Signs Temp Pulse Resp BP Pulse Ox 01/24/20 16:00 98.4 F 79 16 130/71 95 01/24/20 07:15 98.1 F 84 16 130/89 96 Date Exam was Performed: 01/24/20 Time Exam was Performed: 17:10 - Problem List & Annotations (1) Alcohol abuse SNOMED Code(s): 49247978 Code(s): F10.10 - ALCOHOL ABUSE, UNCOMPLICATED Status: Acute Current Visit: Yes (2) Alcohol withdrawal SNOMED Code(s): 176780284 Code(s): F10.239 - ALCOHOL DEPENDENCE WITH WITHDRAWAL, UNSPECIFIED Status: Acute Current Visit: Yes Qualifiers: Complication of substance-induced condition: with delirium Qualified Code(s): F10.231 - Alcohol dependence with withdrawal delirium (3) Alcohol intoxication SNOMED Code(s): 63855525 Code(s): F10.929 - ALCOHOL USE, UNSPECIFIED WITH INTOXICATION, UNSPECIFIED Status: Resolved Current Visit: Yes Qualifiers: Complication of substance-induced condition: with unspecified complication Qualified Code(s): F10.929 - Alcohol use, unspecified with intoxication, unspecified (4) MDD (major depressive disorder) SNOMED Code(s): 346029359 Code(s): F32.9 - MAJOR DEPRESSIVE DISORDER, SINGLE EPISODE, UNSPECIFIED Status: Chronic Current Visit: Yes Qualifiers: Major depression recurrence: recurrent Active/Remission status: currently active Major depression episode severity: moderate Qualified Code(s): F33.1 - Major depressive disorder, recurrent, moderate (5) Malnutrition SNOMED Code(s): 53449363 Code(s): E46 - UNSPECIFIED PROTEIN-CALORIE MALNUTRITION Status: Chronic Current Visit: Yes Qualifiers: Malnutrition type: protein-calorie malnutrition (6) Thoracic spine fracture SNOMED Code(s): 617818177 Code(s): S22.009A - UNSP FRACTURE OF UNSP THORACIC VERTEBRA, INIT FOR CLOS FX Status: Chronic Current Visit: Yes Onset Date: ~10/30/19 Qualifiers: Encounter type: subsequent encounter Thoracic vertebra fracture level: T8 Fracture healing: with routine healing - Problem List Review Problem List Initiated/Reviewed/Updated: Yes - My Orders Last 24 Hours: My Active Orders 01/24/20 09:05 LORazepam [Ativan] 1 mg PO Q4H PRN - Plan Plan:: 1. Continue CIWA protocol, went up overnight, required Ativan overnight at midnight; needs to be 48 hours with no Ativan to be admitted to [facility]. 2. Continue PT/OT for strengthening. 3. Discharge to go to [facility], will stay overnight with his sister to be admitted early next morning to [facility] Chemical dependency unit, COVID testing to be done there.
[2020-01-24] MEDS: Nicotine 21 MG/24 Hr Patch TRDERM SCH (21:04)
[2020-01-24] MEDS: Thiamine 100 MG Tab PO SCH (21:05)
[2020-01-24] MEDS: Acetaminophen 325 MG Tab PO PRN (21:05)
[2020-01-25] MEDS: Citalopram 20 MG Tab PO SCH (08:30)
[2020-01-25 10:33] VITALS: BP 111/75; PULSE 70
--- NOTE | 2020-01-25 14:31 | PCM.DCSUM1 ---
Discharge Summary - Hospital Course HPI Initial Comments: Jorge is a 64-year-old male known to me, presented to ED because of alcohol intoxication. He has a history of Eczema, tobacco abuse, and depression that are previously stable. Yesterday his sister brought him in because his work were not able to reach him. Unclear when his last drink was. He did endorse drinking 6-7 beers per day for several years. Several calls were made in the emergency room to try getting him a place for inpatient treatment, but it's been not been possible - Discharge Data Discharge Date: 01/25/20 Discharge Disposition: Home, Self-Care 01 Condition: Fair - Referral to Home Health Primary Care Physician: Tyson Tellez MD - Discharge Diagnosis/Problem(s) (1) Alcohol abuse SNOMED Code(s): 35283341 ICD Code: F10.10 - ALCOHOL ABUSE, UNCOMPLICATED Status: Acute Current Visit: Yes (2) Alcohol withdrawal SNOMED Code(s): 367223016 ICD Code: F10.239 - ALCOHOL DEPENDENCE WITH WITHDRAWAL, UNSPECIFIED Status: Resolved Current Visit: Yes Problem Details: No ativian since 01/23 2am. Discharge today and will be admitted to [facility] tomorrow. Qualifiers: Complication of substance-induced condition: with delirium Qualified Code(s): F10.231 - Alcohol dependence with withdrawal delirium (3) Alcohol intoxication SNOMED Code(s): 93528295 ICD Code: F10.929 - ALCOHOL USE, UNSPECIFIED WITH INTOXICATION, UNSPECIFIED Status: Resolved Current Visit: Yes Qualifiers: Complication of substance-induced condition: with unspecified complication Qualified Code(s): F10.929 - Alcohol use, unspecified with intoxication, unspecified (4) MDD (major depressive disorder) SNOMED Code(s): 973035298 ICD Code: F32.9 - MAJOR DEPRESSIVE DISORDER, SINGLE EPISODE, UNSPECIFIED Status: Chronic Current Visit: Yes Qualifiers: Major depression recurrence: recurrent Active/Remission status: currently active Major depression episode severity: moderate Qualified Code(s): F33.1 - Major depressive disorder, recurrent, moderate (5) Malnutrition SNOMED Code(s): 29378529 ICD Code: E46 - UNSPECIFIED PROTEIN-CALORIE MALNUTRITION Status: Chronic Current Visit: Yes Qualifiers: Malnutrition type: protein-calorie malnutrition (6) Thoracic spine fracture SNOMED Code(s): 179415158 ICD Code: S22.009A - UNSP FRACTURE OF UNSP THORACIC VERTEBRA, INIT FOR CLOS FX Status: Chronic Current Visit: Yes Onset Date: ~10/30/19 Qualifiers: Encounter type: subsequent encounter Thoracic vertebra fracture level: T8 Fracture healing: with routine healing - Patient Summary/Data Consults: Consultations 01/17/20 19:52 Consult to Case Management/Chip Mucker [CONS] Routine Comment: Physician Instructions: Service(s) to be Consulted: Chip Mucker Reason for Consult: facilitate admission to [facility] inpatient alc treatmen Consult to Shoe Salesman [CONS] Routine Comment: Physician Instructions: Quantity: Consult to Spiritual Care [CONS] Routine 01/18/20 11:19 OT Evaluation and Treatment [CONS] Routine Please Evaluate and Treat. OT Reason for Consult: ADL's This query below is only for informational purposes and is not editable. Admission Diagnosis/Problem: Alcohol dependence PT Evaluation and Treatment [CONS] Routine Please Evaluate and Treat. PT Reason for Consult: Ambulation This query below is only for informational purposes and is not editable. Admission Diagnosis/Problem: Alcohol dependence Hospital Course: Jorge was admitted for alcohol intoxication and withdrawal, worse episodes were day and overnight, improved throughout day Thursday, CIWAA was 4 over Thursday and Thursday. Started becoming more confused Thursday afternoon, redirected, did have episode where he urinated and incontinent of stool at nurses station. Required Ativan overnight Thursday, slept most of Thursday, required 3 doses again overnight Thursday night, last dose was 01/23 at 2am. He has not required any since then, he has progressively been more alert. He was evaluated on Thursday by PT/OT, who recommended further therapies until he goes to inpatient treatment to get stronger. Has history of Thoracic compression fracture in October, OT assessed him and no issues in regards to his back. He is doing well in regards to eating all his meals, 100%. He will be discharged in care of his sister, Winter and she will take him to [place], stay in hotel overnight and present to [facility] tomorrow am for admission, he will get COVID testing there per their protocol. - Patient Instructions Diet: Regular Diet as Tolerated, No Alcoholic Beverages Activity: As Tolerated Driving: Do Not Drive Showering/Bathing: May Shower Other/Special Instructions: Discharge into care of your sister Winter, who will take you to [facility] and be admitted for Inpatient alcohol treatment Tomorrow morning at 830 AM. - Discharge Plan *PRESCRIPTION DRUG MONITORING PROGRAM REVIEWED*: Not Applicable *COPY OF PRESCRIPTION DRUG MONITORING REPORT IN PATIENT MENG: Not Applicable Home Medications: Home Meds Citalopram [Citalopram HBr] 20 mg PO DAILY 01/18/20 [History] Oxygen Therapy Mode: Room Air Patient Handouts: Coping with Quitting Smoking, Alcohol Intoxication, [id number], Alcohol Abuse and Nutrition, Fall Prevention in Hospitals, Adult, Venous Thromboembolism Prevention Forms: ED Department Discharge, Take Home DC Nutrition Plan Referrals: PCP,None [Ordering Only Provider] - - Discharge Summary/Plan Comment DC Time >30 min.: Yes - General Info Date of Service: 01/25/20 Functional Status: Reports: Tolerating Diet, Ambulating. Denies: New Symptoms - Patient Data Vitals - Most Recent: Last Vital Signs Temp 98.2 F 01/25/20 07:20 Pulse 70 01/25/20 07:20 Resp 20 01/25/20 07:20 BP 111/75 01/25/20 07:20 Pulse Ox 95 01/25/20 07:20 Weight - Most Recent: 103 lb 8 oz Med Orders - Current: Current Medications Acetaminophen (Tylenol) 650 mg PO Q4H PRN PRN Reason: Pain (Mild 1-3)/fever Last Admin: 01/24/20 21:05 Dose: 650 mg Documented by: Citalopram Hydrobromide (Celexa) 20 mg PO DAILY [facility] Last Admin: 01/25/20 08:30 Dose: 20 mg Documented by: Lorazepam (Ativan) 2 mg IM Q6H PRN PRN Reason: Agitation Lorazepam (Ativan) 1 mg PO Q4H PRN PRN Reason: Withdrawal Symptoms Nicotine (Habitrol) 21 mg TRDERM DAILY@2100 [facility] Last Admin: 01/24/20 21:04 Dose: 21 mg Documented by: Ondansetron HCl (Zofran) 4 mg IV Q4H PRN PRN Reason: Nausea/Vomiting Sodium Chloride (Saline Flush) 10 ml FLUSH ASDIRECTED PRN PRN Reason: Keep Vein Open Last Admin: 01/21/20 08:09 Dose: 10 ml Documented by: Thiamine HCl (Vitamin B-1) 100 mg PO BEDTIME [facility] Last Admin: 01/24/20 21:05 Dose: 100 mg Documented by: Discontinued Medications Potassium Chloride/Dextrose/Sod Cl (D5 1/4 Ns With 20 Meq Kcl) 1,000 mls @ 75 mls/hr IV ASDIRECTED [facility] Potassium Chloride/Dextrose/Sod Cl (D5 1/2 Ns W/ 20 Meq/L Kcl) 1,000 mls @ 50 mls/hr IV ASDIRECTED [facility] Stop: 01/18/20 19:59 Last Admin: 01/17/20 23:15 Dose: 50 mls/hr Documented by: Potassium Chloride/Dextrose/Sod Cl (D5 1/2 Ns W/ 20 Meq/L Kcl) 1,000 mls @ 50 mls/hr IV Q20H [facility] Last Admin: 01/19/20 15:26 Dose: 50 mls/hr Documented by: Lorazepam (Ativan) 2 mg PO ONETIME ONE Stop: 01/17/20 18:03 Last Admin: 01/17/20 18:09 Dose: 2 mg Documented by: Lorazepam (Ativan) 1 mg IVPUSH Q2H PRN PRN Reason: Other Last Admin: 01/18/20 17:51 Dose: 1 mg Documented by: Lorazepam (Ativan) 1 mg IVPUSH Q2H PRN PRN Reason: Other Last Admin: 01/19/20 10:17 Dose: 1 mg Documented by: Lorazepam (Ativan) 0.5 mg PO Q4H PRN PRN Reason: Withdrawal Symptoms Last Admin: 01/23/20 02:10 Dose: 0.5 mg Documented by: Lorazepam (Ativan) 2 mg IM ONETIME ONE Stop: 01/23/20 03:59 Last Admin: 01/23/20 04:00 Dose: 2 mg Documented by: Lorazepam (Ativan) 1 mg PO Q4H PRN PRN Reason: Withdrawal Symptoms Last Admin: 01/24/20 02:14 Dose: 1 mg Documented by: Nicotine (Habitrol) 21 mg TRDERM DAILY [facility] Last Admin: 01/17/20 22:34 Dose: 21 mg Documented by: - Exam General: Reports: Alert, Oriented, Cooperative, No Acute Distress Lungs: Reports: Clear to Auscultation, Normal Respiratory Effort Cardiovascular: Reports: Regular Rate, Regular Rhythm GI/Abdominal Exam: Normal Bowel Sounds, Soft, Non-Tender, No Distention Extremities: No Pedal Edema Skin: Reports: Warm, Dry, Intact Psy/Mental Status: Reports: Alert, Normal Affect, Normal Mood. Denies: Withdrawal Symptoms (no tremors)
== END 2020-01-25 15:45 | disposition home or self-care (01) | DRG 775 ==
LOC: FB.ED 12:20 → FB.MS 19:50 → MERGE 19:50 → FB.ICU 01-18 19:30 → FB.MS 01-20 08:56
PROVIDERS: ADMIT Emergency Medicine; ATTEND Family Medicine
DX: F10.231 Alcohol dependence with withdrawal delirium (principal); F10.229 Alcohol dependence with intoxication, unspecified; F33.1 Major depressive disorder, recurrent, moderate; E46 Unspecified protein-calorie malnutrition; S22.069D Unspecified fracture of T7-T8 vertebra, subsequent encounter for fracture with routine healing; Y90.0 Blood alcohol level of less than 20 mg/100 ml; F17.210 Nicotine dependence, cigarettes, uncomplicated; G93.89 Other specified disorders of brain; E88.09 Other disorders of plasma-protein metabolism, not elsewhere classified; K52.9 Noninfective gastroenteritis and colitis, unspecified; D72.819 Decreased white blood cell count, unspecified; D75.89 Other specified diseases of blood and blood-forming organs; Z68.1 Body mass index [BMI] 19.9 or less, adult
CPT/HCPCS: 36415; 70450; 71046; 80048; 80053; 80305-QW; 80307; 81001; 83036; 83735; 84443; 85025; 85610; 86140; 93005; 97165-GO; 97530-GO; 99285; 99285-25; A9270-GY; J2060; J3480

== ENCOUNTER 2021-11-17 08:31 | Emergency (ER) | payer BC, MEDICARE ==
[2021-11-17] MEDS ORDERED: Sodium Chloride 0.9% 1,000 ML IV ONE (10:15)
[2021-11-17] MEDS ORDERED: Folic Acid 50 MG/10 ML MDV IV STA (10:16)
[2021-11-17] MEDS ORDERED: Thiamine 100 MG in Sodium Chloride 0.9% 100 ML IV ONE (10:18)
[2021-11-17] MEDS ORDERED: Potassium Chloride 20 MEQ in Premix Bag 1 BAG IV ONE (10:18)
[2021-11-17] MEDS ORDERED: Magnesium Sulfate/Water 2 GM in Premix Bag 1 BAG IV ONE (10:19)
[2021-11-17 20:25] VITALS: BP 101/62; PULSE 87
== END 2021-11-17 16:51 ==
LOC: FB.ED 08:31
DX: R53.1 Weakness (principal); R13.10 Dysphagia, unspecified; F19.90 Other psychoactive substance use, unspecified, uncomplicated; R22.1 Localized swelling, mass and lump, neck; R63.4 Abnormal weight loss; Z20.822 Contact with and (suspected) exposure to COVID-19
CPT/HCPCS: 36415; 70490; 71046; 80053; 85025; 96365; 96366; 96368; 96375; 99285; 99285-25; J3411; J3475; J3480; J3490; J7030; U0002